=== PATIENT | female | born 1965 | race Caucasian/White ===

== ENCOUNTER 2020-07-11 08:43 | Outpatient (REF) | payer OTHER, SELFPAY ==
[2020-07-11 08:57] LABS: COVID-19 Test Positive (Negative); IDNOW Serial# 55D5AD1C
== END 2020-07-11 08:44 | disposition home or self-care (01) ==
LOC: HO.LAB 08:43
PROVIDERS: Visit Provider Internal Medicine
DX: Z20.828 Contact with and (suspected) exposure to other viral communicable diseases (principal)
CPT/HCPCS: 87635; C9803

== ENCOUNTER 2020-10-10 08:33 | Outpatient (REF) | payer OTHER, SELFPAY ==
--- NOTE | ~2020-10-10 | XR_ITS ---
EXAMINATION: XR HIP, LEFT CLINICAL INFORMATION: Pain COMPARISON: Pelvis x-ray November 2018 Right hip MRI January 2019 TECHNIQUE: Two views of the left hip. FINDINGS: Bone alignment is normal. No fracture or dislocation is seen. There are small acetabular osteophytes. No joint space narrowing is seen. Soft tissues are unremarkable. XR/XR hip LT min 2V IMPRESSION: Mild left hip arthritis.
[2020-10-10 10:25] LABS: Alanine Aminotransferase 36 U/L (0-31); Albumin Level 4.4 g/dL (3.5-5.0); Alkaline Phosphatase 75 U/L (39-117); Anion Gap 13 (12-20); Aspartate Amino Transferase 32 U/L (5-31); Bilirubin Total 0.5 mg/dL (0.0-1.0); Blood Urea Nitrogen 13 mg/dL (9-16); Calcium 9.7 mg/dL (8.4-10.2); Carbon Dioxide 29 mmol/L (22-29); Chloride 108 mmol/L (96-108); Cholesterol 162 mg/dL; Estimated Glomerular Filt Rate > 60; Glucose Fasting 114 mg/dL (60-99); HDL Cholesterol 59 mg/dL; LDL Cholesterol Calculated 90 mg/dl; Potassium 4.8 mmol/L (3.3-5.1); Sodium 145 mmol/L (135-145); Total Protein 7.3 g/dL (6.5-8.0); Triglycerides 68 mg/dL
[2020-10-10 10:31] LABS: Estimated Average Glucose 126 mg/dL
[2020-10-10 10:50] LABS: TSH reflex Free T4 2.22 uIU/mL (0.32-4.0)
== END 2020-10-10 08:34 | disposition home or self-care (01) ==
LOC: HO.LAB 08:33
PROVIDERS: PCP Physician Assistant; Visit Provider Physician Assistant
DX: M25.552 Pain in left hip (principal); E78.5 Hyperlipidemia, unspecified
CPT/HCPCS: 36415; 73502; 80053; 80061; 83036; 84443

== ENCOUNTER → 2020-10-31 14:32 | Outpatient (BNVA) | payer OTHER, SELFPAY | PROVIDERS: Visit Provider Orthopaedic Surgery ==

== ENCOUNTER 2020-11-07 15:46 | Outpatient (REF) | payer OTHER, SELFPAY ==
--- NOTE | ~2020-11-07 | MR_ITS ---
EXAMINATION: MR HIP WITHOUT CONTRAST, LEFT CLINICAL INFORMATION: Left hip pain COMPARISON: MRI right hip dated 02/03/2019 TECHNIQUE: MRI of the left hip was obtained using routine sequences on a high-field magnet. FINDINGS: Moderate marrow edema present within the superior LEFT half of the femoral head, small mass extending into the femoral neck. There is a crescentic subchondral band of low T1 signal intensity along the anterosuperior aspect of the femoral head reflective of a subchondral fracture/avascular necrosis. Trace left hip joint effusion. Previously seen marrow edema within the right femoral head has improved. The changes related to avascular necrosis of the right femoral head have resolved. No displaced labral tears. There is marginal osteophytosis of the bilateral hip joints, with ossification of the superior labrum bilaterally. Mild thinning of the cartilage loss along the posterosuperior femoral acetabular joint. There is edema signal surrounding the gluteus minimus and gluteus medius attachments to the greater trochanter, to lesser extent the anterior aponeurotic fibers of the gluteus carmen. Previously seen presumed enchondroma within the right femoral lesser trochanters unchanged. No additional focal osseous lesions. MR/MR hip LT wo con IMPRESSION: * Mild edema signal within the LEFT femoral head superiorly associated with a crescentic subchondral low T1 signal intensity and within the anterosuperior femoral head compatible with early avascular necrosis. * Small LEFT joint effusion. * Bilateral femoral acetabular marginal osteophytes and ossification of the superior annabella. * Previously seen marrow signal abnormality within the right femoral head has resolved. No evidence of collapse of the subchondral bone plate on the RIGHT. * Stable enchondroma within the RIGHT lesser trochanter. * Mild LEFT gluteus minimus and gluteus medius tendinosis
== END 2020-11-07 15:47 | disposition home or self-care (01) ==
LOC: HO.MRI 15:46
PROVIDERS: Visit Provider Orthopaedic Surgery
DX: M25.552 Pain in left hip (principal)
CPT/HCPCS: 73721

== ENCOUNTER → 2020-11-18 13:31 | Outpatient (BNVA) | payer OTHER, SELFPAY | PROVIDERS: Visit Provider Orthopaedic Surgery ==

== ENCOUNTER → 2020-12-26 13:12 | Outpatient (BNVA) | payer OTHER, SELFPAY | PROVIDERS: PCP Physician Assistant; Visit Provider Orthopaedic Surgery ==

== ENCOUNTER 2021-03-07 13:07 | Outpatient (REF) | payer OTHER, SELFPAY | END 2021-03-07 13:08 | disposition home or self-care (01) | LOC: HO.LAB 13:07 | PROVIDERS: PCP Physician Assistant; Visit Provider Internal Medicine | DX: Z20.822 Contact with and (suspected) exposure to COVID-19 (principal) | CPT/HCPCS: U0003; U0005 ==

== ENCOUNTER 2021-10-15 08:27 | Outpatient (REF) | payer OTHER, SELFPAY ==
[2021-10-15 09:09] LABS: Hematocrit 41.4 % (37.0-47.0); Hemoglobin 12.7 g/dl (12.0-16.0); Mean Corpuscular HGB Conc 30.7 g/dl (31.0-35.0); Mean Corpuscular Hemoglobin 27.5 pg (27.0-33.0); Mean Corpuscular Volume 89.6 fL (80.0-98.0); Mean Platelet Volume 10.8 fL (9.4-12.3); Platelet Count 292 X10*3/uL (160-400); Red Blood Count 4.62 X10*6/uL (4.20-5.50); Red Cell Distribution Width 13.5 % (11.0-16.0); White Blood Count 7.9 X10*3/uL (4.8-10.8)
[2021-10-15 09:23] LABS: Estimated Average Glucose 128 mg/dL; Hemoglobin A1c % 6.1 %
[2021-10-15 09:47] LABS: Alanine Aminotransferase 20 U/L (0-31); Albumin Level 4.3 g/dL (3.5-5.0); Alkaline Phosphatase 65 U/L (39-117); Anion Gap 11 (12-20); Aspartate Amino Transferase 21 U/L (5-31); Bilirubin Total 0.8 mg/dL (0.0-1.0); Blood Urea Nitrogen 12 mg/dL (9-16); Calcium 10.1 mg/dL (8.4-10.2); Carbon Dioxide 30 mmol/L (22-29); Chloride 106 mmol/L (96-108); Cholesterol 177 mg/dL; Estimated Glomerular Filt Rate > 60; Glucose Fasting 112 mg/dL (60-99); HDL Cholesterol 62 mg/dL; LDL Cholesterol Calculated 97 mg/dl; Potassium 4.9 mmol/L (3.3-5.1); Sodium 142 mmol/L (135-145); Total Protein 7.4 g/dL (6.5-8.0); Triglycerides 91 mg/dL
[2021-10-15 10:09] LABS: TSH reflex Free T4 1.85 uIU/mL (0.32-4.0)
== END 2021-10-15 08:28 | disposition home or self-care (01) ==
LOC: HO.LAB 08:27
PROVIDERS: PCP Physician Assistant; Visit Provider Physician Assistant
DX: E78.2 Mixed hyperlipidemia (principal); R73.09 Other abnormal glucose
CPT/HCPCS: 36415; 80053; 80061; 83036; 84443; 85027

== ENCOUNTER → 2021-10-29 10:59 | Outpatient (REF) | payer OTHER, SELFPAY ==
--- NOTE | 2021-10-29 11:13 | HM_ITS ---
Conclusion: 1. Patient was monitored for total period of 5 days and 18 hours 2. Baseline was normal sinus rhythm with average heart rate 82 beats per minute 3. No significant pauses or bradycardia noted 4. Very rare ectopy is noted 5. Patient reported event correlated with sinus rhythm MTDD
== END ==
LOC: HO.SL 10:59
PROVIDERS: PCP Physician Assistant; Visit Provider Physician Assistant
DX: R00.2 Palpitations (principal); R06.81 Apnea, not elsewhere classified
CPT/HCPCS: 93242; 95806

== ENCOUNTER 2021-11-22 10:02 | Outpatient (REF) | payer OTHER, SELFPAY ==
--- NOTE | ~2021-11-22 | MM_ITS ---
EXAMINATION: MM SCREENING DIGITAL BREAST TOMOSYNTHESIS, BILATERAL CLINICAL INFORMATION: Screening. Asymptomatic. The lifetime risk of breast cancer based on the Tyrer-Cuzick Model is 7%. COMPARISON: Mammography: 11/11/2019, 11/05/2018, 02/13/2017 TECHNIQUE: Digital breast tomosynthesis is performed in both the craniocaudal and mediolateral oblique views along with computer-aided detection (CAD). Synthesized 2D images are generated from the tomosynthesis. FINDINGS: There are scattered areas of fibroglandular density (ACR BI-RADS breast composition Category b). There are no significant masses, abnormal calcifications, or other abnormalities. There are diffuse bilateral punctate calcifications similar in number and distribution to prior studies. The axilla and skin contours are unremarkable. MM/MM tomosynthesis screening BI IMPRESSION: No mammographic evidence of malignancy. ASSESSMENT: BI-RADS 2: Benign RECOMMENDATION: Routine annual mammography screening. This patient's information was entered into a reminder system with a target due date for their next mammogram.
== END 2021-11-22 10:03 | disposition home or self-care (01) ==
LOC: HO.MAMMO 10:02
PROVIDERS: PCP Physician Assistant; Visit Provider Physician Assistant
DX: Z12.31 Encounter for screening mammogram for malignant neoplasm of breast (principal)
CPT/HCPCS: 77063; 77067

== ENCOUNTER 2022-04-30 09:00 | Outpatient (REF) | payer OTHER, SELFPAY ==
[2022-04-30 09:54] LABS: Hematocrit 39.4 % (37.0-47.0); Hemoglobin 12.2 g/dl (12.0-16.0); Mean Corpuscular Hemoglobin 27.3 pg (27.0-33.0); Mean Corpuscular Volume 88.1 fL (80.0-98.0); Platelet Count 287 X10*3/uL (160-400); Red Blood Count 4.47 X10*6/uL (4.20-5.50); Red Cell Distribution Width 13.4 % (11.0-16.0); White Blood Count 8.2 X10*3/uL (4.8-10.8)
[2022-04-30 10:40] LABS: Alanine Aminotransferase 33 U/L (0-31); Albumin Level 4.5 g/dL (3.5-5.0); Alkaline Phosphatase 66 U/L (39-117); Anion Gap 15 (12-20); Aspartate Amino Transferase 27 U/L (5-31); Bilirubin Total 0.6 mg/dL (0.0-1.0); Blood Urea Nitrogen 8 mg/dL (9-16); Calcium 9.9 mg/dL (8.4-10.2); Carbon Dioxide 29 mmol/L (22-29); Chloride 107 mmol/L (96-108); Cholesterol 172 mg/dL; Estimated Glomerular Filt Rate > 60; Glucose Fasting 100 mg/dL (60-99); HDL Cholesterol 66 mg/dL; LDL Cholesterol Calculated 87 mg/dl; Potassium 4.9 mmol/L (3.3-5.1); Sodium 146 mmol/L (135-145); Total Protein 7.3 g/dL (6.5-8.0); Triglycerides 97 mg/dL
[2022-04-30 10:48] LABS: TSH reflex Free T4 2.49 uIU/mL (0.32-4.0)
== END 2022-04-30 09:01 | disposition home or self-care (01) ==
LOC: HO.LAB 09:00
PROVIDERS: PCP Physician Assistant; Visit Provider Physician Assistant
DX: E03.9 Hypothyroidism, unspecified (principal); E78.2 Mixed hyperlipidemia; R73.09 Other abnormal glucose
CPT/HCPCS: 36415; 80053; 80061; 84443; 85027

== ENCOUNTER 2022-11-28 09:48 | Outpatient (REF) | payer OTHER, SELFPAY ==
--- NOTE | ~2022-11-28 | MM_ITS ---
EXAMINATION: MM SCREENING DIGITAL BREAST TOMOSYNTHESIS, BILATERAL CLINICAL INFORMATION: Screening. Asymptomatic. The lifetime risk of breast cancer based on the Tyrer-Cuzick Model is 5%. COMPARISON: Mammography: 11/22/2021, 11/11/2019, 11/05/2018 TECHNIQUE: Digital breast tomosynthesis is performed in both the craniocaudal and mediolateral oblique views along with computer-aided detection (CAD). Synthesized 2D images are generated from the tomosynthesis. FINDINGS: There are scattered areas of fibroglandular density (ACR BI-RADS breast composition Category b). Parenchymal pattern is similar to prior exams and there is no significant mass, developing density, or or architectural abnormality. Again, there are diffuse bilateral scattered punctate calcifications in both breasts, similar in number and distribution to prior exams. The axilla and skin contours are unremarkable. No significant changes from prior studies. MM/MM tomosynthesis screening BI IMPRESSION: No mammographic evidence of malignancy. ASSESSMENT: BI-RADS 2: Benign RECOMMENDATION: Routine annual mammography screening. This patient's information was entered into a reminder system with a target due date for their next mammogram.
== END 2022-11-28 09:49 | disposition home or self-care (01) ==
LOC: HO.MAMMO 09:48
PROVIDERS: PCP Physician Assistant; Visit Provider Physician Assistant
DX: Z12.31 Encounter for screening mammogram for malignant neoplasm of breast (principal)
CPT/HCPCS: 77063; 77067

== ENCOUNTER 2023-01-20 08:15 | Outpatient (REF) | payer OTHER, SELFPAY ==
[2023-01-20 08:37] LABS: MANUAL DIFF FLAG NO
[2023-01-20 08:51] LABS: Basophils Absolute Auto 0.1 X10*3/uL (0.0-0.2); Basophils Percent Auto 0.7 % (0-2); Eosinophils Absolute Auto 0.1 X10*3/uL (0.0-0.4); Imm Gran Abs Auto 0.02 X10*3/uL (0.00-0.03); Imm Gran Pct Auto 0.3 % (0.0-0.4); Lymphocytes Absolute Auto 2.5 X10*3/uL (1.2-4.9); Lymphocytes Percent Auto 36.2 % (20-40); Mean Corpuscular HGB Conc 30.8 g/dl (31.0-35.0); Mean Corpuscular Hemoglobin 27.7 pg (27.0-33.0); Mean Corpuscular Volume 90.1 fL (80.0-98.0); Mean Platelet Volume 10.4 fL (9.4-12.3); Monocytes Absolute Auto 0.5 X10*3/uL (0.1-1.2); Monocytes Percent Auto 6.9 % (2-11); Neutrophils Absolute Auto 3.8 x10*3/uL (2.0-8.3); Neutrophils Percent Auto 54.9 % (45-73); Platelet Count 271 X10*3/uL (160-400); Red Blood Count 4.33 X10*6/uL (4.20-5.50); Red Cell Distribution Width 13.6 % (11.0-16.0)
[2023-01-20 09:46] LABS: Alanine Aminotransferase 31 U/L (0-31); Albumin Level 4.3 g/dL (3.5-5.0); Alkaline Phosphatase 67 U/L (39-117); Anion Gap 13 (12-20); Aspartate Amino Transferase 22 U/L (5-31); Bilirubin Total 0.8 mg/dL (0.0-1.0); Blood Urea Nitrogen 10 mg/dL (9-16); Calcium 9.8 mg/dL (8.4-10.2); Carbon Dioxide 28 mmol/L (22-29); Chloride 110 mmol/L (96-108); Cholesterol 160 mg/dL; Estimated Glomerular Filt Rate > 60; Glucose Random 106 mg/dL (60-115); HDL Cholesterol 60 mg/dL; LDL Cholesterol Calculated 89 mg/dl; Potassium 4.9 mmol/L (3.3-5.1); Sodium 146 mmol/L (135-145); Total Protein 7.1 g/dL (6.5-8.0); Triglycerides 59 mg/dL
[2023-01-20 09:56] LABS: Folate 15.6 ng/mL (> or = 4.0); TSH reflex Free T4 1.93 uIU/mL (0.32-4.0); Vitamin B12 268 pg/mL (200-900); Vitamin D 25-OH Total 11.3 ng/mL (>30)
== END 2023-01-20 08:16 | disposition home or self-care (01) ==
LOC: HO.LAB 08:15
PROVIDERS: PCP Physician Assistant; Visit Provider Nurse Practitioner Family
DX: Z00.00 Encounter for general adult medical examination without abnormal findings (principal); E03.9 Hypothyroidism, unspecified; E78.5 Hyperlipidemia, unspecified; R73.09 Other abnormal glucose; E55.9 Vitamin D deficiency, unspecified
CPT/HCPCS: 36415; 80053; 80061; 82306; 82607; 82746; 84443; 85025

== ENCOUNTER 2023-03-09 14:00 | Outpatient (REF) | payer OTHER, SELFPAY ==
--- NOTE | ~2023-03-09 | XR_ITS ---
EXAMINATION: XR ANKLE, RIGHT CLINICAL INFORMATION: Effusion, right ankle COMPARISON: None available. TECHNIQUE: AP, lateral, and mortise views of the right ankle. FINDINGS: No evidence for displaced fracture. The ankle mortise is intact. There is no joint effusion. Large plantar calcaneal spur and Achilles enthesophyte. There is orthopedic hardware in the first metatarsal XR/XR ankle RT 2V IMPRESSION: 1. No evidence for displaced fracture. No joint effusion. 2. Calcaneal spur and Achilles enthesophyte.
== END 2023-03-09 14:01 | disposition home or self-care (01) ==
LOC: HO.XRAY 14:00
PROVIDERS: PCP Physician Assistant; Visit Provider Physician Assistant
DX: M25.471 Effusion, right ankle (principal)
CPT/HCPCS: 73600

== ENCOUNTER 2023-05-04 16:04 | Outpatient (REF) | payer OTHER, SELFPAY ==
[2023-05-04 16:42] LABS: Estimated Average Glucose 120 mg/dL; Hemoglobin A1c % 5.8 % (<6.0)
[2023-05-04 16:56] LABS: Hematocrit 37.8 % (37.0-47.0); Mean Corpuscular HGB Conc 31.7 g/dl (31.0-35.0); Mean Corpuscular Hemoglobin 27.7 pg (27.0-33.0); Mean Corpuscular Volume 87.3 fL (80.0-98.0); Mean Platelet Volume 10.8 fL (9.4-12.3); Platelet Count 283 X10*3/uL (160-400); Red Blood Count 4.33 X10*6/uL (4.20-5.50); Red Cell Distribution Width 13.3 % (11.0-16.0); White Blood Count 9.8 X10*3/uL (4.8-10.8)
[2023-05-04 17:07] LABS: Anion Gap 12 (12-20); Blood Urea Nitrogen 15 mg/dL (9-16); Calcium 9.9 mg/dL (8.4-10.2); Carbon Dioxide 28 mmol/L (22-29); Chloride 107 mmol/L (96-108); Estimated Glomerular Filt Rate > 60; Glucose Random 104 mg/dL (60-115); Potassium 3.8 mmol/L (3.3-5.1); Sodium 143 mmol/L (135-145)
== END 2023-05-04 16:05 | disposition home or self-care (01) ==
LOC: HO.LAB 16:04
PROVIDERS: PCP Physician Assistant; Visit Provider Physician Assistant
DX: R73.09 Other abnormal glucose (principal)
CPT/HCPCS: 36415; 80048; 83036; 85027

== ENCOUNTER → 2023-06-18 15:24 | Outpatient (BNVA) | payer OTHER, SELFPAY | PROVIDERS: PCP Physician Assistant; Visit Provider Physician Assistant | DX: Z13.89 Encounter for screening for other disorder (principal) | CPT/HCPCS: 99204 ==

== ENCOUNTER → 2023-06-24 13:15 | Outpatient (BNVA) | payer OTHER, SELFPAY | PROVIDERS: PCP Physician Assistant; Visit Provider Physician Assistant Medical | DX: Z13.89 Encounter for screening for other disorder (principal) | CPT/HCPCS: 99213 ==

== ENCOUNTER 2023-08-04 15:45 | Outpatient (AMB) | payer OTHER, SELFPAY ==
--- NOTE | 2023-08-04 15:48 | A.OFFPC_ITS ---
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 Required: No Accompanied by: Self / Same As Patient Allergies No Known Allergies Allergy (Verified 08/04/23 16:04) Medication List - Last Reconciled 08/04/23 by Shantanu Leal PA-C cholecalciferol (vitamin D3) 50 mcg PO DAILY cyclobenzaprine 5 mg PO BEDTIME PRN ibuprofen 600 mg PO TID metformin ER 500 mg PO DAILY 30 days naproxen 500 mg PO BID PRN omeprazole 40 mg PO DAILY 90 days simvastatin 40 mg PO BEDTIME Tobacco use date assessed: 01/19/23 Dental Screening Dental Screen Date: 08/04/23 Did you have a dental visit in the last 12 months?: Yes Did you have a dental problem in the last 6 months where you did not have access to dental care?: No Was dental information given to patient?: Patient has dentist HPI HLD, Thyroid HPI Details Patient is a 57-year-old female here today for follow-up visit.? Patient has a past medical history significant for hypothyroidism, hyperlipidemia, impaired glucose metabolism, obesity. .. Obesity:? Has gained weight since last office visit. Continues to have trouble reducing her weight.? Has not physically active in her diet is reported as poor Of note patient did have sleep study in early 2019 to which did show moderate to severe obstructive sleep apnea and recommendations were made to be sleeping in an more upright position. .. GERD: She has been having to use omeprazole on daily basis due to her GERD s ymptoms being on a daily. She does report eating late at night before she goes to bed. .. Hyperlipidemia: Patient continues on simvastatin 40 mg without side effect. Continue to lipid panel to ensure an appropriate LDL below 100. .. Type 2 diabetes: ?Today's A1c is 6.9 from 6.0. Does report dietary indiscretion. She also does report few episodes of feeling shaky and sweaty to which she needed to lay down. She reports she felt better after she ate. Likely hypoglycemia.? PLAN: Will start Trulicity 0.75 mg weekly and discontinue metformin. Trulicity for added benefit of weight loss as well. .. Laboratory Tests 03/28/20 10/10/20 08:08 08:58 Creatinine 0.73 Fasting Glucose 103 H 114 H Hemoglobin A1c % 6.0 Cholesterol 179 162 LDL Cholesterol, C alc 105 TSH 2.22 [facility] Medical History (Updated 08/05/23 @ 07:50 by Shantanu Leal PA-C) Impaired glucose metabolism Exposure to COVID-19 virus Surgical History History of partial hysterectomy History of bunionectomy History of tubal ligation Family History Father Hypertension Alcoholism Mother Acute CVA (cerebrovascular accident) Stroke Son In good health Daughter In good health Social History Housing: House Alcohol intake: never Patient Tobacco Use Status: Never used Tobacco e-Cigarette/Vaping Use: Never Used service: No Current occupational status: employed 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 Marc Taylor, Kathie Patel, Rogelio Mercado and colleagues, with an educational sonia from [employer]. Review of Systems Const Denies headache(s) Eyes Denies loss of vision ENT Denies vertigo, Denies dizziness, Denies headache(s) and Denies sore throat Card Denies chest pain, Denies leg edema and Denies lightheadedness Resp Denies cough, Denies hemoptysis and Denies wheezing GI Denies abdominal pain, Denies melena, Denies constipation, Denies diarrhea and Denies vomiting Denies urinary frequency, Denies dysuria and Denies urinary urgency Musc Denies arthralgias, Denies joint swelling, Denies numbness and Denies tingling Neuro Denies Abnormal speech present, Denies behavioral changes, Denies vertigo, Denies dizziness, Denies headache(s), Denies loss of vision, Denies memory loss, Denies numbness and Denies tingling Psych Denies anxiety, Denies behavioral changes, Denies depression, Denies memory loss and Denies panic attacks James/Lymph Denies easy bleeding and Denies easy bruising Aller/Immun Denies wheezing Physical exam (Primary Care) Vital Signs: Last Vital Signs Pulse 90 08/04/23 15:49 BP 150/96 H 08/04/23 15:49 Pulse Ox 95 08/04/23 15:49 Oxygen Delivery Method Room Air 08/04/23 15:49 BMI result Body Mass Index 34.8 BMI Assessment/Plan discussion: High Tobacco/Smoking Status: Tobacco use Status Tobacco use date assessed 01/19/23 08/04/23 15:50 Patient Tobacco Use Status Never used Tobacco 08/04/23 15:50 e-Cigarette/Vaping Use Never Used 08/04/23 15:50 Thrive Assessment: Date of Thrive Assessment Date Thrive assessed 01/19/23 08/04/23 15:50 Const Other: Obese General: healthy appearing, no acute distress, alert and awake Nutritional Appearance: well nourished Orientation/consciousness: oriented to person, oriented to place and oriented to time HENMT Ears: TM's normal bilaterally General nose exam: Normal nasal mucous membranes and turbinates present Eyes Conjunctivae: conjunctivae normal Sclerae: sclerae normal Pupils: Equal, round and reactive pupils present Neck Neck: Yes no lymphadenopathy and Yes no JVD Thyroid: Thyroid normal Carotids: no bruits Resp Effort & Inspection: normal respiratory effort and not tachypneic Auscultation: no crackles, no rales, no rhonchi and no wheezes Cardio Rate: regular rate Rhythm: regular rhythm Heart sounds: no murmurs and normal S1 and S2 GI Palpation (GI): Soft to palpation, nontender, no hepatomegaly and no splenomegaly Auscultation: normal bowel sounds Skin General skin exam: no rashes or lesions noted and dry skin Neuro General: oriented to person, oriented to place and oriented to time Cranial nerves: Yes Equal, round and reactive pupils present Speech: No Abnormal speech present Gait exam (Neuro): Normal gait present Motor exam (neuro): no tremor noted Extrem Right upper extremity: full ROM Left upper extremity: full ROM Right lower extremity: full ROM; no edema Left lower extremity: full ROM; no edema Psych Mental Status: mental status grossly normal Speech and movement: Normal speech and movement present Affect: normal affect Attitude: cooperative Thought process: Normal thought process present Results AMB Hemoglobin A1c AMB Hemoglobin A1c 6.9 % Last Edit by CLARIBEL Lopez on 08/04/23 16:06 Results Reviewed Results Reviewed: Laboratory Last Values Hgb A1c (Clinic) 6.9 % (4.0-6.0) H 08/04/23 15:56 Assessment and Plan Assessment & Plan (1) DMII (diabetes mellitus, type 2): Code(s): E11.9 - Type 2 diabetes mellitus without complications Qualifiers: Diabetes mellitus complication status: with hyperglycemia 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 She is willing to start once weekly injection of Trulicity for added benefit of weight loss. If able to get Trulicity covered by [employer] will discontinue metformin. Goal A1c is to be below 6.5 (2) HLD (hyperlipidemia): Code(s): E78.5 - Hyperlipidemia, unspecified Qualifiers: Hyperlipidemia type: mixed hyperlipidemia Qualified Code(s): E78.2 - Mixed hyperlipidemia Plan: patient continues on statin therapy with good effect. Will get more recent lipid panel. Goal LDL to be below 100 due to her new onset diabetes. (3) GERD (gastroesophageal reflux disease): Code(s): K21.9 - Gastro-esophageal reflux disease without esophagitis Qualifiers: Esophagitis presence: without esophagitis Qualified Code(s): K21.9 - Gastro-esophageal reflux disease without esophagitis Plan: She reports GERD symptoms have been more frequent. Have to take omeprazole on a daily basis. Will try dietary modifications and not eating too late at night before she lays down for bed. Orders: Orders Lipid Panel 08/04/23 E78.2 - Mixed hyperlipidemia AMB Hemoglobin A1c 08/04/23 Z13.1 - Encounter for screening for diabetes mellitus Comprehensive [place]. Panel Fast 08/04/23 E78.2 - Mixed hyperlipidemia TSH reflex Free T4 08/04/23 E03.9 - Hypothyroidism, unspecified Vitamin D 25-OH Total 08/04/23 R79.89 - Other specified abnormal findings of blood chemistry Referrals Ophthalmology Referral E11.65 - Type 2 diabetes mellitus with hyperglycemia Medications: New lancets (FreeStyle Lancets) Test once a day 100 ea 3RF E11.65 - Type 2 diabetes mellitus with hyperglycemia, E11.9 - Type 2 diabetes mellitus without complications blood sugar diagnostic (FreeStyle Lite Strips) Test once a day 50 ea 3RF E11.65 - Type 2 diabetes mellitus with hyperglycemia, E11.9 - Type 2 diabetes mellitus without complications dulaglutide (Trulicity) 0.75 mg (0.5 mL) subcut QWEEK 2 mL 1RF E11.65 - Type 2 diabetes mellitus with hyperglycemia blood-glucose meter (FreeStyle [place] Lite kit) As directed 1 ea 0RF E11.65 - Type 2 diabetes mellitus with hyperglycemia Refilled cholecalciferol (vitamin D3) 50 mcg PO DAILY 90 tabs 0RF R79.89 - Other specified abnormal findings of blood chemistry simvastatin 40 mg PO BEDTIME 90 tabs 2RF E78.2 - Mixed hyperlipidemia omeprazole 40 mg PO DAILY 90 days 90 caps 1RF K21.9 - Gastro-esophageal reflux disease without esophagitis Discontinued ibuprofen Discontinued Reason: Doctor's Order 600 mg PO TID 90 tabs 0RF M25.552 - Pain in left hip On Hold metformin ER Hold Comment: Doctor's Order 500 mg PO DAILY 30 days 30 tabs 6RF R73.09 - Other abnormal glucose Coding Level of Care Code Est Pt Level 4 (69732) Diagnoses Type 2 diabetes mellitus with hyperglycemia, without long-term current use of insulin E11.65 Diabetes mellitus complication status: with hyperglycemia Diabetes mellitus senior care insulin use: without senior care use Mixed hyperlipidemia E78.2 Hyperlipidemia type: mixed hyperlipidemia Gastroesophageal reflux disease without esophagitis K21.9 Esophagitis presence: without esophagitis
[2023-08-04 15:49] VITALS: BP 150/96; PULSE 90; O2SAT 95; BMI 34.8
== END 2023-08-04 16:25 | disposition home or self-care (01) ==
PROVIDERS: PCP Physician Assistant; Visit Provider Physician Assistant
DX: E11.65 Type 2 diabetes mellitus with hyperglycemia (principal)
CPT/HCPCS: 83036; 99214

== ENCOUNTER 2023-08-05 08:35 | Outpatient (REF) | payer OTHER, SELFPAY ==
[2023-08-05 10:53] LABS: Alanine Aminotransferase 43 U/L (0-31); Albumin Level 4.4 g/dL (3.5-5.0); Alkaline Phosphatase 67 U/L (39-117); Anion Gap 15 (12-20); Aspartate Amino Transferase 31 U/L (5-31); Bilirubin Total 0.6 mg/dL (0.0-1.0); Blood Urea Nitrogen 16 mg/dL (9-16); Carbon Dioxide 30 mmol/L (22-29); Chloride 108 mmol/L (96-108); Cholesterol 165 mg/dL (<200); Estimated Glomerular Filt Rate > 60; Glucose Fasting 105 mg/dL (60-99); HDL Cholesterol 58 mg/dL (>40); LDL Cholesterol Calculated 87 mg/dL (<100); Potassium 4.5 mmol/L (3.3-5.1); Sodium 148 mmol/L (135-145); Total Protein 7.6 g/dL (6.5-8.0); Triglycerides 102 mg/dL (<150)
[2023-08-05 10:58] LABS: TSH reflex Free T4 3.76 uIU/mL (0.32-4.0); Vitamin D 25-OH Total 28.2 ng/mL (>30)
== END 2023-08-05 08:36 | disposition home or self-care (01) ==
LOC: HO.LAB 08:35
PROVIDERS: PCP Physician Assistant; Visit Provider Physician Assistant
DX: E78.2 Mixed hyperlipidemia (principal); E03.9 Hypothyroidism, unspecified; E55.9 Vitamin D deficiency, unspecified
CPT/HCPCS: 36415; 80053; 80061; 82306; 84443

== ENCOUNTER 2023-11-10 10:52 | Outpatient (AMB) | payer OTHER, SELFPAY ==
[2023-11-10 11:28] VITALS: BP 150/92; PULSE 85; O2SAT 98; BMI 35.2
--- NOTE | 2023-11-10 11:28 | MHC.PC.OV ---
Vital Signs 11/10/23 11:28 11/10/23 12:01 Height 5 ft 5 in Weight 211 lb 4 oz BMI 35.2 BP 150/92 H 144/86 H Blood Pressure Location Lt brachial Position Sitting Pulse 85 Pulse Source Pulse Oximeter Pulse Oximetry (%) 98 Oxygen Delivery Method Room Air Intake Visit Reasons: 3 month f/u Linux Administrator Required: No Accompanied by: Self / Same As Patient Allergies No Known Allergies Allergy (Verified 11/10/23 11:46) Tobacco use date assessed: 11/10/23 Dental Screening Dental Screen Date: 11/10/23 Did you have a dental visit in the last 12 months?: Yes Did you have a dental problem in the last 6 months where you did not have access to dental care?: No Was dental information given to patient?: Patient has dentist HPI 3 month f/u HPI Details Patient is a 58-year-old female here today for follow-up visit.? Patient has a past medical history significant for hypothyroidism, osteoarthritis of the hip hyperlipidemia, impaired glucose metabolism, obesity. .. Obesity:? Has gained weight since last office visit. Continues to have trouble reducing her weight.? Has not physically active in her diet is reported as poor Of note patient did have sleep study in early 2019 to which did show moderate to severe obstructive sleep apnea and recommendations were made to be sleeping in an more upright position. .. GERD: She has been having to use omeprazole on daily basis due to her GERD symptoms being on a daily. She does report eating late at night before she goes to bed. .. Hyperlipidemia: Patient continues on simvastatin 40 mg without side effect. Continue to lipid panel to ensure an appropriate LDL below 100. .. Type 2 diabetes: ?Today's A1c is 6.2 from 6.9. Does report dietary indiscretion reports his hard to eat vegetables . We have discontinued metformin and started Trulicity though has not noted any weight loss with Trulicity. PLAN: Will transition to Ozempic 0.5 mg weekly and up titrate per response. She is now very interested in starting to be more physically active and adapt to better eating habits. She is now interested in speaking with a hawk missile air defense artillery. Laboratory Tests 08/04/23 11/10/23 15:56 11:18 Hgb A1c (Clinic) 6.9 H 6.2 H [facility] Medical History (Updated 03/13/24 @ 12:01 by Shantanu Leal PA-C) Impaired glucose metabolism Exposure to COVID-19 virus Surgical History History of partial hysterectomy History of bunionectomy History of tubal ligation Family History Father Hypertension Alcoholism Mother Acute CVA (cerebrovascular accident) Stroke Son In good health Daughter In good health Social History Housing: House Alcohol intake: never Patient Tobacco Use Status: Never used Tobacco e-Cigarette/Vaping Use: Never Used service: No Current occupational status: employed 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 1. Little interest or pleasure in doing things: not at all 2. Feeling down, depressed, or hopeless: not at all 3. Trouble falling or staying asleep, or sleeping too much: not at all 4. Feeling tired or having little energy: not at all 5. Poor appetite or overeating: not at all 6. Feeling bad about yourself - or that you are a failure or have let yourself or your family down: not at all 7. Trouble concentrating on things, such as reading the newspaper or watching television: not at all 8. Moving or speaking so slowly that other people could have noticed. Or the opposite - being so fidgety or restless that you have been moving around a lot more than usual: not at all 9. Thoughts that you would be better off or of hurting yourself in some way: not at all Total score: 0 Depression Screening Interpretation: Negative Depression Screening Done: Yes 25788 - PHQ-9 Billing: Yes Source: Developed by Drs. Marc Taylor, Kathie Patel, Rogelio Mercado and colleagues, with an educational sonia from [employer]. Thrive Questionnaire Date Thrive assessed: 11/10/23 I am a: Patient What is your living situation today?: I have a steady place to live Within the past 12 months, did the food you bought not last and you didn't have the money to get more?: Never true Within the past 12 months, did you worry whether your food would run out before you got money to buy more?: Never true Do you have trouble paying for medicines?: No Do you have trouble getting transportation to medical appointments?: No Do you have trouble paying your heating and electricity bill?: No Do you have trouble taking care of your child, family member or friend?: No Do you have trouble with day-to-day activities such as bathing, preparing meals, shopping, managing finances, etc.?: No Are you currently unemployed and looking for a job?: No Are you interested in more education?: No Please select the resources that you would like help with: None Currently or been in a relationship where the following occur: no concerns reported THRIVE Score: 0 AUDIT C Alcohol Use Questionnaire (AUDIT-C) 1. How often do you have a drink containing alcohol?: Never 3. How often do you have six or more drinks on one occasion?: Never Total Score: 0 JED-7 AMB Questionnaire JED-7 Date JED - 7 assessed: 11/10/23 Feeling nervous, anxious, or on edge: 0 = Not at all Not being able to stop or control worryin = Not at all Worrying too much about different things: 0 = Not at all Trouble relaxin = Not at all Being so restless that it is hard to sit still: 0 = Not at all Becoming easily annoyed or irritable: 0 = Not at all Feeling afraid as if something awful might happen: 0 = Not at all Total JED-7 score (0-4 normal; 5-9 mild; 10-14 moderate; 15-21 severe): 0 Source: Developed by Drs. Marc Taylor, Kathie Patel, Rogelio Mercado and colleagues, with an educational sonia from [employer]. JED-7 Assessment Billing JED-7 Assessment Tool: JED-7 Assessment 34004 Review of Systems Const Denies headache(s) Eyes Denies loss of vision ENT Denies vertigo, Denies dizziness, Denies headache(s) and Denies sore throat Card Denies chest pain, Denies leg edema and Denies lightheadedness Resp Denies cough, Denies hemoptysis and Denies wheezing GI Denies abdominal pain, Denies melena, Denies constipation, Denies diarrhea and Denies vomiting Denies urinary frequency, Denies dysuria and Denies urinary urgency Musc Denies arthralgias, Denies joint swelling, Denies numbness and Denies tingling Neuro Denies Abnormal speech present, Denies behavioral changes, Denies vertigo, Denies dizziness, Denies headache(s), Denies loss of vision, Denies memory loss, Denies numbness and Denies tingling Psych Denies anxiety, Denies behavioral changes, Denies depression, Denies memory loss and Denies panic attacks James/Lymph Denies easy bleeding and Denies easy bruising Aller/Immun Denies wheezing Physical exam (Primary Care) Vital Signs: Last Vital Signs Pulse 85 11/10/23 11:28 BP 144/86 H 11/10/23 12:01 Pulse Ox 98 11/10/23 11:28 Oxygen Delivery Method Room Air 11/10/23 11:28 BMI result Body Mass Index 35.2 BMI Assessment/Plan discussion: High Tobacco/Smoking Status: Tobacco use Status Tobacco use date assessed 11/10/23 11/10/23 11:46 Patient Tobacco Use Status Never used Tobacco 11/10/23 11:31 e-Cigarette/Vaping Use Never Used 11/10/23 11:31 PHQ-9: PHQ-9 Score PHQ-9: Total score 0 11/10/23 11:47 Depression Screening Interpretation: Negative Thrive Assessment: Date of Thrive Assessment Date Thrive assessed 11/10/23 11/10/23 11:31 Currently or been in a relationship where the following occur: no concerns reported Const Other: Obese General: healthy appearing, no acute distress, alert and awake Nutritional Appearance: well nourished Orientation/consciousness: oriented to person, oriented to place and oriented to time HENMT Ears: TM's normal bilaterally General nose exam: Normal nasal mucous membranes and turbinates present Eyes Conjunctivae: conjunctivae normal Sclerae: sclerae normal Pupils: Equal, round and reactive pupils present Neck Neck: Yes no lymphadenopathy and Yes no JVD Thyroid: Thyroid normal Carotids: no bruits Resp Effort & Inspection: normal respiratory effort and not tachypneic Auscultation: no crackles, no rales, no rhonchi and no wheezes Cardio Rate: regular rate Rhythm: regular rhythm Heart sounds: no murmurs and normal S1 and S2 GI Palpation (GI): Soft to palpation, nontender, no hepatomegaly and no splenomegaly Auscultation: normal bowel sounds Skin General skin exam: no rashes or lesions noted and dry skin Neuro General: oriented to person, oriented to place and oriented to time Cranial nerves: Yes Equal, round and reactive pupils present Speech: No Abnormal speech present Gait exam (Neuro): Normal gait present Motor exam (neuro): no tremor noted Extrem Right upper extremity: full ROM Left upper extremity: full ROM Right lower extremity: full ROM; no edema Left lower extremity: full ROM; no edema Psych Mental Status: mental status grossly normal Speech and movement: Normal speech and movement present Affect: normal affect Attitude: cooperative Thought process: Normal thought process present Results AMB Hemoglobin A1c AMB Hemoglobin A1c 6.2 % Last Edit by CLARIBEL Lopez on 11/10/23 11:46 Results Reviewed Results Reviewed: Laboratory Last Values Hgb A1c (Clinic) 6.2 % (4.0-6.0) H 11/10/23 11:18 Assessment and Plan Assessment & Plan (1) DMII (diabetes mellitus, type 2): Code(s): E11.9 - Type 2 diabetes mellitus without complications Qualifiers: Diabetes mellitus complication status: with hyperglycemia Diabetes mellitus prison insulin use: without prison use Qualified Code(s): E11.65 - Type 2 diabetes mellitus with hyperglycemia Plan: A1c has improved. She is started Trulicity though has not noted any weight loss in fact has gained weight.. Will try to transition to Ozempic 0.5 mg weekly and up titrate per response. She was start working on a diabetic diet and being more physically active to lose weight as well. Will try to set her up with a hawk missile air defense artillery to discuss diabetic diet Goal A1c is to be below 6.5 (2) HLD (hyperlipidemia): Code(s): E78.5 - Hyperlipidemia, unspecified Qualifiers: Hyperlipidemia type: mixed hyperlipidemia Qualified Code(s): E78.2 - Mixed hyperlipidemia Plan: patient continues on statin therapy with good effect. Will get more recent lipid panel. Goal LDL to be below 100 due to her new onset diabetes. (3) GERD (gastroesophageal reflux disease): Code(s): K21.9 - Gastro-esophageal reflux disease without esophagitis Qualifiers: Esophagitis presence: without esophagitis Qualified Code(s): K21.9 - Gastro-esophageal reflux disease without esophagitis Plan: She reports GERD symptoms have been more frequent. Have to take omeprazole on a daily basis. Will try dietary modifications and not eating too late at night before she lays down for bed. (4) Obese: Code(s): E66.9 - Obesity, unspecified Qualifiers: Body mass index: BMI 35.0-35.9 Obesity classification: adult class 2 (BMI 35 - 39.9) Obesity type: due to excess calories Serious obesity comorbidity presence: with serious comorbidity Qualified Code(s): E66.01 - Morbid (severe) obesity due to excess calories; Z68.35 - Body mass index [BMI] 35.0-35.9, adult Plan: Patient does understand her BMI is over 30 will work on being more physically active and adapting to better eating habits to reduce her weight (5) HTN (hypertension): Code(s): I10 - Essential (primary) hypertension Qualifiers: Hypertension type: primary hypertension Qualified Code(s): I10 - Essential (primary) hypertension Plan: Noted elevated blood pressure readings on several occasions here in the MD office. Will start low-dose hydrochlorothiazide for blood pressure control. Advised to monitor blood pressure at home with goal blood pressure to be below 140/90 Orders: Orders AMB Hemoglobin A1c Today E11.9 - Type 2 diabetes mellitus without complications Lipid Panel Today E78.2 - Mixed hyperlipidemia Microalbumin, Random (w Creat) Today E11.65 - Type 2 diabetes mellitus with hyperglycemia MM screening mammo BI Today Z12.31 - Encounter for screening mammogram for malignant neoplasm of breast Comprehensive [place]. Panel Fast Today E11.65 - Type 2 diabetes mellitus with hyperglycemia TSH reflex Free T4 Today E03.9 - Hypothyroidism, unspecified Referrals Census Taker Nutrition Referral E66.9 - Obesity, unspecified Medications: New semaglutide (Ozempic) 0.5 mg (0.736 mL) subcut QWEEK 3 mL 3RF E11.65 - Type 2 diabetes mellitus with hyperglycemia hydrochlorothiazide 12.5 mg PO DAILY 90 days 90 tabs 1RF I10 - Essential (primary) hypertension Discontinued dulaglutide (Trulicity) Discontinued Reason: Doctor's Order 0.75 mg (0.5 mL) subcut QWEEK 2 mL 1RF E11.65 - Type 2 diabetes mellitus with hyperglycemia Coding Level of Care Code Est Pt Level 4 (11721) Diagnoses Type 2 diabetes mellitus with hyperglycemia, without long-term current use of insulin E11.65 Diabetes mellitus complication status: with hyperglycemia Diabetes mellitus intermission coordinator insulin use: without intermission coordinator use Mixed hyperlipidemia E78.2 Hyperlipidemia type: mixed hyperlipidemia Gastroesophageal reflux disease without esophagitis K21.9 Esophagitis presence: without esophagitis Class 2 severe obesity due to excess calories with serious comorbidity and body mass index (BMI) of 35.0 to 35.9 in adult E66.01; Z68.35 Body mass index: BMI 35.0-35.9 Obesity classification: adult class 2 (BMI 35 - 39.9) Obesity type: due to excess calories Serious obesity comorbidity presence: with serious comorbidity Primary hypertension I10 Hypertension type: primary hypertension Additional Codes JED-7 Assessment Billing - JED-7 Assessment Tool: JED-7 Assessment 33308 ([id number])
[2023-11-10 12:01] VITALS: BP 144/86
== END 2023-11-10 12:10 | disposition home or self-care (01) ==
PROVIDERS: PCP Physician Assistant; Visit Provider Physician Assistant
DX: E11.65 Type 2 diabetes mellitus with hyperglycemia (principal); E78.2 Mixed hyperlipidemia; K21.9 Gastro-esophageal reflux disease without esophagitis; E66.01 Morbid (severe) obesity due to excess calories; Z68.35 Body mass index [BMI] 35.0-35.9, adult; I10 Essential (primary) hypertension; E11.9 Type 2 diabetes mellitus without complications
CPT/HCPCS: 83036; 99214

== ENCOUNTER 2023-11-11 07:19 | Outpatient (REF) | payer OTHER, SELFPAY ==
[2023-11-11 08:21] LABS: Alanine Aminotransferase 29 U/L (0-31); Albumin Level 4.1 g/dL (3.5-5.0); Alkaline Phosphatase 80 U/L (39-117); Anion Gap 10 (12-20); Aspartate Amino Transferase 26 U/L (5-31); Bilirubin Total 0.4 mg/dL (0.0-1.0); Blood Urea Nitrogen 15 mg/dL (9-16); Calcium 9.7 mg/dL (8.4-10.2); Carbon Dioxide 30 mmol/L (22-29); Chloride 110 mmol/L (96-108); Cholesterol 161 mg/dL (<200); Estimated Glomerular Filt Rate > 60; Glucose Fasting 134 mg/dL (60-99); HDL Cholesterol 52 mg/dL (>40); LDL Cholesterol Calculated 88 mg/dL (<100); Potassium 4.2 mmol/L (3.3-5.1); Sodium 146 mmol/L (135-145); Total Protein 7.2 g/dL (6.5-8.0); Triglycerides 108 mg/dL (<150)
[2023-11-11 08:29] LABS: Creatinine Urine 194.36 mg/dL; Microalbum/Creatinine Ratio Ur 5.6 ug/mg cr (<30)
[2023-11-11 08:35] LABS: TSH reflex Free T4 2.97 uIU/mL (0.32-4.0)
== END 2023-11-11 07:20 | disposition home or self-care (01) ==
LOC: HO.LAB 07:19
PROVIDERS: PCP Physician Assistant; Visit Provider Physician Assistant
DX: E11.65 Type 2 diabetes mellitus with hyperglycemia (principal); E03.9 Hypothyroidism, unspecified; E78.2 Mixed hyperlipidemia
CPT/HCPCS: 36415; 80053; 80061; 82043; 82570; 84443

== ENCOUNTER 2023-11-24 12:55 | Outpatient (AMB) | payer OTHER, SELFPAY ==
[2023-11-24 12:59] VITALS: BMI 35.1
--- NOTE | 2023-11-24 12:59 | A.OFFVIS_ITS ---
Intake VS Expanded 11/24/23 12:59 Height 5 ft 5 in Weight 210 lb 12.191 oz BMI 35.1 Intake Visit Reasons: Obesity/LVM Allergies No Known Allergies Allergy (Verified 11/10/23 11:46) HPI Nutrition Presentation Details Pt presents for MNT for obesity. Pt also has T2DM. Pt was referred by primary care provider, Christian Leal Pt reports eating out more frequently since moving to a new living place in March 2023 Typical meal B: eggs/cheese on sand and juice L: chicken/potato/veg meal at work snacks : juices/sodas 7pm dinner: eating out (rice/ellison/ques[place] illa beverages: juices/soda,no water food frequency fish: 0-1/wk fruits 2-3/d or juices beans- not including vegetables: limited to 0-2x/wk dairy: cheese mostly sedentary - no ETOH/Smoking PJC-Zctwyhq-Vy.Jeor Equation Height 5 ft 5 in Weight 211 lb Resting Metabolic Rate 1551.48 Calculated Activity Level Sedentary Calories Needed to Maintain Weight 1861.78 Diagnosis Nutrition problem #1 excessive energy intake As related to (etiology) #1 diagnosis As evidenced by (sign/symptom) #1 high BMI (35 on 11/2023) and knowledge deficit of diet Monitoring/Goals Nutrition problem monitoring level of knowledge/skill, total CHO intake, weight and oral fluids Nutrition goal/outcome wt loss 5lbs in 2 months Outcome progress verbalized understanding Learning/Education Readiness to learn good Most Recent Diabetes Results: Microalb/Creat Ratio 5.6 ug/mg cr (<30) 11/11/23 Cholesterol 161 mg/dL (<200) 11/11/23 HDL Cholesterol 52 mg/dL (>40) 11/11/23 Triglycerides 108 mg/dL (<150) 11/11/23 Creatinine 0.79 mg/dL (0.5-1.4) 11/11/23 Blood Urea Nitrogen 15 mg/dL (9-16) 11/11/23 Sodium 146 mmol/L (135-145) H 11/11/23 Potassium 4.2 mmol/L (3.3-5.1) 11/11/23 Chloride 110 mmol/L (96-108) H 11/11/23 Carbon Dioxide 30 mmol/L (22-29) H 11/11/23 Calcium 9.7 mg/dL (8.4-10.2) 11/11/23 AST 26 U/L (5-31) 11/11/23 ALT 29 U/L (0-31) 11/11/23 Total Protein 7.2 g/dL (6.5-8.0) 11/11/23 Albumin 4.1 g/dL (3.5-5.0) 11/11/23 [facility] Medical History (Updated 11/10/23 @ 12:01 by Shantanu Leal PA-C) Impaired glucose metabolism Exposure to COVID-19 virus Surgical History History of partial hysterectomy History of bunionectomy History of tubal ligation Family History Father Hypertension Alcoholism Mother Acute CVA (cerebrovascular accident) Stroke Son In good health Daughter In good health Social History Housing: House Alcohol intake: never Patient Tobacco Use Status: Never used Tobacco e-Cigarette/Vaping Use: Never Used service: No Current occupational status: employed 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 Cognitive needs: No Hearing needs: No Vision needs: No Assessment & Plan Assessment & Plan (1) DMII (diabetes mellitus, type 2): Code(s): E11.9 - Type 2 diabetes mellitus without complications Qualifiers: Diabetes mellitus complication status: with hyperglycemia Diabetes mellitus fpc insulin use: without fpc use Qualified Code(s): E11.65 - Type 2 diabetes mellitus with hyperglycemia Plan: Wt:96 Kg ( 10/2023 ) Est kcal needs as per MSJ: 5499-5032 (40% carb, 30% protein/fat) Est fluid needs as per 25-30 ml/d: 2900 Est prot per day as per 1 g/kg bw: 96 Recommend fiber intake : 8-10 g per day and gradually increase to 25-28 g per day for women and 35-38 g for men or as tolerated Recommend sodium intake per day : less than 2000 mg Educated patient on: ( R = reviewed V = verbalizes understanding N/R = needs review N/A = not applicable * Food sources of carbohydrate, adequate serving sizes and its role in various health conditions: R * Differences between complex carbohydrates a simple carbohydrates, role of fiber in diet: R * Lean protein sources of foods: R V NR * Differences between types of fats and role in diet (mono on saturated fat fatty acids, saturated fatty acids, trans fats): R basic * Food sources of sodium in salt and healthy modifications for heart health in kidney health: R V R/V * Vitamins and minerals: R V N/R * Healthy plate method concept: R * Physical activity: Benefits a precaution: R V N/R * Hypoglycemia protocol (rule of 15): R V N/R * Dietary prevention of Hyperglycemia: R Patient Instructions: HAve a fruit in place of juices see meal plan for ideas on reducing portions/total carbs to 60 g or less at meal time for now monitor your blood sugar to assess low blood sugar , treat low blood sugar by following rule of 15, report low blood sugar to your primary care provider for further evaluation Coding Level of Care Code Nutr Indiv Intake (11870) Diagnoses Type 2 diabetes mellitus with hyperglycemia, without long-term current use of insulin E11.65 Diabetes mellitus complication status: with hyperglycemia Diabetes mellitus termite treater helper insulin use: without termite treater helper use Time Spent (min) 30
[2023-12-06 20:27] VITALS: BMI 35.1
== END 2023-11-24 13:36 | disposition home or self-care (01) ==
PROVIDERS: PCP Physician Assistant; Visit Provider Dietitian, Registered
DX: E11.65 Type 2 diabetes mellitus with hyperglycemia (principal)

== ENCOUNTER → 2023-11-24 12:55 | Outpatient (BNVA) | payer OTHER, SELFPAY | PROVIDERS: PCP Physician Assistant; Visit Provider Dietitian, Registered | DX: E66.9 Obesity, unspecified (principal); Z68.35 Body mass index [BMI] 35.0-35.9, adult; E11.65 Type 2 diabetes mellitus with hyperglycemia; Z71.3 Dietary counseling and surveillance | CPT/HCPCS: 97802 ==

== ENCOUNTER 2023-12-25 09:51 | Outpatient (REF) | payer OTHER, SELFPAY ==
--- NOTE | ~2023-12-25 | MM_ITS ---
EXAMINATION: MM SCREENING DIGITAL BREAST TOMOSYNTHESIS, BILATERAL CLINICAL INFORMATION: Screening. Asymptomatic. COMPARISON: Mammography: This study is compared with prior exams dating back to 2019. TECHNIQUE: Digital breast tomosynthesis is performed in both the craniocaudal and mediolateral oblique views along with computer-aided detection (CAD). Synthesized 2D images are generated from the tomosynthesis. FINDINGS: There are scattered areas of fibroglandular density (ACR BI-RADS breast composition Category b). There are no significant masses, abnormal calcifications, or other abnormalities. There are bilateral benign calcifications in each breast. MM/MM tomosynthesis screening BI IMPRESSION: No mammographic evidence of malignancy. ASSESSMENT: BI-RADS BI-RADS 1 - Negative RECOMMENDATION: Routine annual mammography screening. 1 year F/U This examination should not preclude the clinical evaluation of a suspicious palpable abnormality. This patient's information was entered into a reminder system with a target due date for their next mammogram.
== END 2023-12-25 09:52 | disposition home or self-care (01) ==
LOC: HO.MAMMO 09:51
PROVIDERS: PCP Physician Assistant; Visit Provider Physician Assistant
DX: Z12.31 Encounter for screening mammogram for malignant neoplasm of breast (principal)
CPT/HCPCS: 77063; 77067

== ENCOUNTER → 2023-12-25 10:00 | Outpatient (BNV) | payer OTHER, SELFPAY | PROVIDERS: PCP Physician Assistant; Visit Provider Radiology Diagnostic Radiology | DX: Z12.31 Encounter for screening mammogram for malignant neoplasm of breast (principal) | CPT/HCPCS: 77063; 77067 ==

== ENCOUNTER 2023-12-29 12:58 | Outpatient (AMB) | payer OTHER, SELFPAY ==
[2023-12-29 13:10] VITALS: BMI 33.1
--- NOTE | 2023-12-29 13:10 | A.OFFVIS_ITS ---
Intake VS Expanded 12/29/23 13:10 Height 5 ft 5 in Weight 198 lb 13.711 oz BMI 33.1 Intake Visit Reasons: obesity /T2DM/CONFIRMED Allergies No Known Allergies Allergy (Verified 11/10/23 11:46) HPI Nutrition Presentation Details Pt presents for MNT for f/u f or type 2DM Pt reports working on diet modifications, reducing portions, choosing lower calorie lunches/making home made lunches Has started to walk 1/2 hour , 5 times/wk Pt reports feeling well, not monitoring BG Most Recent Diabetes Results: Microalb/Creat Ratio 5.6 ug/mg cr (<30) 11/11/23 Cholesterol 161 mg/dL (<200) 11/11/23 HDL Cholesterol 52 mg/dL (>40) 11/11/23 Triglycerides 108 mg/dL (<150) 11/11/23 Creatinine 0.79 mg/dL (0.5-1.4) 11/11/23 Blood Urea Nitrogen 15 mg/dL (9-16) 11/11/23 Sodium 146 mmol/L (135-145) H 11/11/23 Potassium 4.2 mmol/L (3.3-5.1) 11/11/23 Chloride 110 mmol/L (96-108) H 11/11/23 Carbon Dioxide 30 mmol/L (22-29) H 11/11/23 Calcium 9.7 mg/dL (8.4-10.2) 11/11/23 AST 26 U/L (5-31) 11/11/23 ALT 29 U/L (0-31) 11/11/23 Total Protein 7.2 g/dL (6.5-8.0) 11/11/23 Albumin 4.1 g/dL (3.5-5.0) 11/11/23 [facility] Medical History (Updated 11/10/23 @ 12:01 by Shantanu Leal PA-C) Impaired glucose metabolism Exposure to COVID-19 virus Surgical History History of partial hysterectomy History of bunionectomy History of tubal ligation Family History Father Hypertension Alcoholism Mother Acute CVA (cerebrovascular accident) Stroke Son In good health Daughter In good health Social History Housing: House Alcohol intake: never Patient Tobacco Use Status: Never used Tobacco e-Cigarette/Vaping Use: Never Used service: No Current occupational status: employed 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 Cognitive needs: No Hearing needs: No Vision needs: No Assessment & Plan Assessment & Plan (1) DMII (diabetes mellitus, type 2): Code(s): E11.9 - Type 2 diabetes mellitus without complications Qualifiers: Diabetes mellitus complication status: with hyperglycemia Diabetes mellitus correction insulin use: without terminal clerk use Qualified Code(s): E11.65 - Type 2 diabetes mellitus with hyperglycemia Plan: Wt:96 Kg ( 10/2023 ), 90 kg (12/2023) Est kcal needs as per MSJ: 4481-3231 (40% carb, 30% protein/fat) Est fluid needs as per 25-30 ml/d: 2700 Est prot per day as per 1 g/kg bw: 90 Recommend fiber intake : 8-10 g per day and gradually increase to 25-28 g per day for women and 35-38 g for men or as tolerated Recommend sodium intake per day : less than 2000 mg Educated patient on: ( R = reviewed V = verbalizes understanding N/R = needs review N/A = not applicable * Food sources of carbohydrate, adequate serving sizes and its role in various health conditions: R * Differences between complex carbohydrates a simple carbohydrates, role of fiber in diet: R * Lean protein sources of foods: R V NR * Differences between types of fats and role in diet (mono on saturated fat fat ty acids, saturated fatty acids, trans fats): R basic * Food sources of sodium in salt and healthy modifications for heart health in kidney health: R V R/V * Vitamins and minerals: R V N/R * Healthy plate method concept: R * Physical activity: Benefits a precaution: R V N/R * Hypoglycemia protocol (rule of 15): R V N/R * Dietary prevention of Hyperglycemia: R Patient Instructions: Continue working on reducing on portions of starches, choose high fiber /complex carbs Include a serving of protein at lunch time Read your labels and choose lower sodium foods monitor your blood sugar as prescribed by your doctor Coding Level of Care Code Nutr Indiv Subseq (91653) Diagnoses Type 2 diabetes mellitus with hyperglycemia, without long-term current use of insulin E11.65 Diabetes mellitus complication status: with hyperglycemia Diabetes mellitus terminal clerk insulin use: without terminal clerk use Time Spent (min) 30
== END 2023-12-29 13:34 | disposition home or self-care (01) ==
PROVIDERS: PCP Physician Assistant; Visit Provider Dietitian, Registered
DX: E11.65 Type 2 diabetes mellitus with hyperglycemia (principal)

== ENCOUNTER → 2023-12-29 12:58 | Outpatient (BNVA) | payer OTHER, SELFPAY | PROVIDERS: PCP Physician Assistant; Visit Provider Dietitian, Registered | DX: E11.65 Type 2 diabetes mellitus with hyperglycemia (principal); E66.9 Obesity, unspecified; Z68.33 Body mass index [BMI] 33.0-33.9, adult; Z71.3 Dietary counseling and surveillance | CPT/HCPCS: 97803 ==

== ENCOUNTER 2024-02-08 11:28 | Outpatient (AMB) | payer OTHER, SELFPAY ==
[2024-02-08 11:30] VITALS: BP 140/86; PULSE 78; O2SAT 98; BMI 32.8
--- NOTE | 2024-02-08 11:30 | MHC.PC.OV ---
Vital Signs 02/08/24 11:30 Height 5 ft 5 in Weight 197 lb 4 oz BMI 32.8 BP 140/86 H Blood Pressure Location Lt brachial Position Sitting Pulse 78 Pulse Source Pulse Oximeter Pulse Oximetry (%) 98 Oxygen Delivery Method Room Air Intake Visit Reasons: PE Intake Note: Patient is here today for a physical. Fitter Placer Required: No Accompanied by: Self / Same As Patient Allergies No Known Allergies Allergy (Verified 02/08/24 11:38) Medication List - Last Reconciled 02/08/24 by Shantanu Leal PA-C blood sugar diagnostic (FreeStyle Lite Strips) Test once a day blood-glucose meter (FreeStyle [place] Lite kit) As directed cholecalciferol (vitamin D3) 50 mcg PO DAILY cyclobenzaprine 5 mg PO BEDTIME PRN hydrochlorothiazide 12.5 mg PO DAILY 90 days lancets (FreeStyle Lancets) Test once a day metformin ER 500 mg PO DAILY 30 days naproxen 500 mg PO BID PRN omeprazole 40 mg PO DAILY 90 days semaglutide (Ozempic) 0.5 mg (0.736 mL) subcut QWEEK simvastatin 40 mg PO BEDTIME Tobacco use date assessed: 11/10/23 Dental Screening Dental Screen Date: 11/10/23 HPI PE HPI Details Patient is a 58-year-old female here today for a annual physical.? Patient has a past medical history significant for hypothyroidism, osteoarthritis of the hip hyperlipidemia, impaired glucose metabolism, obesity. .. Obesity:? Has lost weight since last office visit, today's BMI 32.8.. Continues to have trouble reducing her weight.? She has been much more physically active. She does report some side effect from GLP 1 of constipation. She does also report recently having more hunger toward the end of week. PLAN: Willing to increase her dose of Ozempic to 1 mg weekly. .. GERD: She has been having to use omeprazole on daily basis due to her GERD symptoms being on a daily. She does report eating late at night before she goes to bed. .. Hyperlipidemia: Patient continues on simvastatin 40 mg without side effect. Continue to lipid panel to ensure an appropriate LDL below 100. .. Type 2 diabetes: ?Today's A1c is 5.9 from 6.2. Continues on GLP 1 with good effect. She is also speaking with a rental clerk tool and equipment Has been holding her metformin. As above does report feeling much more hunger toward the end of the week. She is willing to increase her dose of Ozempic. Vaccine: UTD with Tdap , UTD with COVID, need Shingrex . Colon: 2018 - repeat 5 years- Is Due for repeat colonoscopy . Mammogram: 11/2023- BIRADS 1-- Laboratory Tests 08/04/23 11/10/23 11/11/23 15:56 11:18 07:29 Creatinine 0.79 Fasting Glucose 134 H Hgb A1c (Clinic) 6.9 H 6.2 H LDL Cholesterol, C alc [facility] Medical History Impaired glucose metabolism Exposure to COVID-19 virus Surgical History History of partial hysterectomy History of bunionectomy History of tubal ligation Family History Father Hypertension Alcoholism Mother Acute CVA (cerebrovascular accident) Stroke Son In good health Daughter In good health Social History Housing: House Alcohol intake: never Patient Tobacco Use Status: Never used Tobacco e-Cigarette/Vaping Use: Never Used service: No Current occupational status: employed 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 Marc Taylor, Kathie Patel, Rogelio Mercado and colleagues, with an educational sonia from [employer]. Review of Systems Const Denies body aches, Denies chills, Denies excessive sweating, Denies fatigue, Denies fever(s) and Denies headache(s) Eyes Denies blurry vision ENT Denies dysphagia, Denies vertigo, Denies dizziness, Denies headache(s), Denies hearing loss and Denies tinnitus Card Denies chest pain, Denies chest pain with activity, Denies syncope, Denies irregular heart rhythm and Denies dyspnea Resp Denies chest congestion, Denies cough, Denies hemoptysis, Denies dyspnea and Denies wheezing GI Denies abdominal pain, Denies melena, Denies hematochezia, Denies coffee ground emesis, Denies dysphagia, Denies diarrhea, Denies nausea and Denies vomiting Denies urinary frequency, Denies dysuria, Denies urinary hesitancy and Denies urinary urgency Musc Denies arthralgias, Denies limited range of motion, Denies muscle cramps and Denies muscle weakness Skin/Breast Denies rash and Denies skin ulcer Neuro Denies Abnormal speech present, Denies confusion, Denies vertigo, Denies dizziness, Denies syncope, Denies headache(s), Denies memory loss and Denies seizure-like activity Psych Denies anxiety, Denies confusion, Denies depression, Denies memory loss, Denies panic attacks and Denies paranoia Endo Denies excessive sweating, Denies fatigue, Denies flushing, Denies polydipsia and Denies polyuria Aller/Immun Denies wheezing Physical exam (Primary Care) Vital Signs: Last Vital Signs Pulse 78 02/08/24 11:30 BP 140/86 H 02/08/24 11:30 Pulse Ox 98 02/08/24 11:30 Oxygen Delivery Method Room Air 02/08/24 11:30 BMI result Body Mass Index 32.8 Tobacco/Smoking Status: Tobacco use Status Tobacco use date assessed 11/10/23 02/08/24 11:33 Patient Tobacco Use Status Never used Tobacco 02/08/24 11:33 e-Cigarette/Vaping Use Never Used 02/08/24 11:33 Thrive Assessment: Date of Thrive Assessment Date Thrive assessed 11/10/23 02/08/24 11:33 Const General: cooperative, comfortable, no acute distress, alert and awake; No confusion Orientation/consciousness: oriented to person, oriented to place, patient oriented x3 and No confusion HENMT Head: Yes normocephalic Ears: external ears normal and TM's normal bilaterally Face and sinus: No sinus tenderness Mouth: Normal oral and palatal mucosa present and tongue normal Teeth and gingiva: dentition normal and gingiva normal Throat: Yes posterior oropharynx normal, Yes tonsils normal and Yes uvula midline Eyes Conjunctivae: conjunctivae normal Sclerae: sclerae normal Pupils: Equal, round and reactive pupils present EOM: EOMs intact bilaterally Direct Ophthalmoscopy: No no photophobia Neck Neck: Yes no lymphadenopathy, No tender and Yes no JVD Thyroid: Thyroid normal Carotids: no bruits Chest Chest palpation & inspection: no tenderness Resp Effort & Inspection: normal respiratory effort, no audible wheezes, not labored and no stridor Auscultation: no crackles, no rales, no rhonchi and no wheezes Cardio Jugular venous distension: no JVD Rate: regular rate, not bradycardic and not tachycardic Rhythm: regular rhythm Bruits: no carotid bruits Peripheral pulses: Peripheral pulses 2+ throughout GI Inspection: Yes normal to inspection, No abdominal wall ecchymosis and No visible herniation Palpation (GI): Soft to palpation, nontender, no guarding, not rigid and No hepatosplenomegaly present Auscultation: normoactive bowel sounds General: Yes no CVA tenderness Back/Spine/Pelvis Back: no CVA tenderness and No back tenderness Cervical Spine: cervical ROM normal Thoracic/Lumbar Spine: thoracic and lumbar spine normal to inspection, straight leg raise negative bilaterally, No thoraco-lumbar ROM limited and No lumbar spinal tenderness Skin Lesions: no lesions Rashes: no rashes Wounds: no wounds Neuro General: oriented to person, oriented to place, patient oriented x3, CN's II-XI intact bilaterally and No confusion Cranial nerves: Yes Equal, round and reactive pupils present and Yes Normal accommodation reflex present Cognition (Neuro): normal cognition Speech: No Abnormal speech present Gait exam (Neuro): Normal gait present Motor exam (neuro): 5/5 motor strength present throughout Extrem Right upper extremity: full ROM; no cyanosis Left upper extremity: full ROM; no cyanosis Right lower extremity: no edema Left lower extremity: no edema Psych Appearance: grossly normal Mental Status: mental status grossly normal Affect: normal affect Attitude: cooperative Thought process: Normal thought process present Results AMB Hemoglobin A1c AMB Hemoglobin A1c 5.9 % Last Edit by CLARIBEL Lopez on 02/08/24 11:48 Results Reviewed Results Reviewed: Laboratory Last Values Hgb A1c (Clinic) 5.9 % (4.0-6.0) 02/08/24 11:34 Assessment and Plan Assessment & Plan (1) Annual physical exam: Code(s): Z00.00 - Encounter for general adult medical examination without abnormal findings (2) DMII (diabetes mellitus, type 2): Code(s): E11.9 - Type 2 diabetes mellitus without complications Qualifiers: Diabetes mellitus complication status: with hyperglycemia Diabetes mellitus middle or intermediate school principal insulin use: without middle or intermediate school principal use Qualified Code(s): E11.65 - Type 2 diabetes mellitus with hyperglycemia Plan: A1c has improved to 5.9. She continues on Ozempic with good effect. Did have some constipation as a side effect. She does admit to feeling some hunger toward the end of the week. She has willing to the Ozempic to 1 mg weekly Goal A1c is to be below 7.0 (3) HLD (hyperlipidemia): Code(s): E78.5 - Hyperlipidemia, unspecified Qualifiers: Hyperlipidemia type: mixed hyperlipidemia Qualified Code(s): E78.2 - Mixed hyperlipidemia Plan: patient continues on statin therapy with good effect. Will get more recent lipid panel. Goal LDL to be below 100 due to her new onset diabetes. (4) Obese: Code(s): E66.9 - Obesity, unspecified Qualifiers: Body mass index: BMI 35.0-35.9 Obesity classification: adult class 2 (BMI 35 - 39.9) Obesity type: due to excess calories Serious obesity comorbidity presence: with serious comorbidity Qualified Code(s): E66.01 - Morbid (severe) obesity due to excess calories; Z68.35 - Body mass index [BMI] 35.0-35.9, adult Plan: Has lost significant amount of weight since starting GLP 1 Continues to be more physically active (5) HTN (hypertension): Code(s): I10 - Essential (primary) hypertension Qualifiers: Hypertension type: primary hypertension Qualified Code(s): I10 - Essential (primary) hypertension Plan: Blood pressure elevated today in office. Continues on hydrochlorothiazide 12.5. Will add on LEELA-inhibitor for renal protection due to diabetes. Advised to monitor blood pressure at home with goal blood pressure to be below 140/90 (6) Screening for colon cancer: Code(s): Z12.11 - Encounter for screening for malignant neoplasm of colon Plan: Patient is due for screening colonoscopy. Orders: Orders AMB Hemoglobin A1c Today E11.65 - Type 2 diabetes mellitus with hyperglycemia Complete Blood Count no Diff Today I10 - Essential (primary) hypertension Comprehensive [place]. Panel Fast Today E11.65 - Type 2 diabetes mellitus with hyperglycemia Microalbumin, Random (w Creat) Today I10 - Essential (primary) hypertension Lipid Panel Today E78.2 - Mixed hyperlipidemia Referrals Gastroenterology Referral Z12.11 - Encounter for screening for malignant neoplasm of colon Medications: New semaglutide (Ozempic) 1 mg (0.75 mL) subcut QWEEK 3 mL 3RF 4 weeks E11.65 - Type 2 diabetes mellitus with hyperglycemia lisinopril-hydrochlorothiazide 10-12.5 mg 1 tab PO DAILY 90 tabs 1RF 90 days E11.65 - Type 2 diabetes mellitus with hyperglycemia Discontinued hydrochlorothiazide Discontinued Reason: Doctor's Order 12.5 mg PO DAILY 90 days 90 tabs 1RF I10 - Essential (primary) hypertension On Hold semaglutide (Ozempic) Hold Comment: Doctor's Order 0.5 mg (0.736 mL) subcut QWEEK 3 mL 3RF E11.65 - Type 2 diabetes mellitus with hyperglycemia Patient Instructions: Goal: A1c to remain below 7.0, blood pressure to be below 140/90. monitor blood pressure Barriers: Adherence to physical activity and healthy eating habits Coding Level of Care Code Est Pt Prev Care 40-64y(59813) Diagnoses Annual physical exam Z00.00 Type 2 diabetes mellitus with hyperglycemia, without long-term current use of insulin E11.65 Diabetes mellitus complication status: with hyperglycemia Diabetes mellitus middle or intermediate school principal insulin use: without middle or intermediate school principal use Mixed hyperlipidemia E78.2 Hyperlipidemia type: mixed hyperlipidemia Class 2 severe obesity due to excess calories with serious comorbidity and body mass index (BMI) of 35.0 to 35.9 in adult E66.01; Z68.35 Body mass index: BMI 35.0-35.9 Obesity classification: adult class 2 (BMI 35 - 39.9) Obesity type: due to excess calories Serious obesity comorbidity presence: with serious comorbidity Primary hypertension I10 Hypertension type: primary hypertension Screening for colon cancer Z12.11
== END 2024-02-08 12:07 | disposition home or self-care (01) ==
PROVIDERS: PCP Physician Assistant; Visit Provider Physician Assistant
DX: Z00.00 Encounter for general adult medical examination without abnormal findings (principal); E11.65 Type 2 diabetes mellitus with hyperglycemia; E78.2 Mixed hyperlipidemia; E66.01 Morbid (severe) obesity due to excess calories; Z68.35 Body mass index [BMI] 35.0-35.9, adult; I10 Essential (primary) hypertension; Z12.11 Encounter for screening for malignant neoplasm of colon
CPT/HCPCS: 83036; 99396

== ENCOUNTER 2024-03-09 08:25 | Outpatient (AMB) | payer OTHER, SELFPAY ==
--- NOTE | 2024-03-09 08:31 | A.OFFVIS_ITS ---
Vital Signs 03/09/24 08:35 Height 5 ft 5 in Weight 190 lb BMI 31.6 BP 113/67 Blood Pressure Location Lt brachial Position Sitting Pulse 82 Intake Visit Reasons: Pre Colonoscopy screening Intake Note: Patient new consult or 2nd pre colonoscopy. Patient cc: constipation on and off. Denies any other GI issues. Creative Technologist Required: No Accompanied by: Self / Same As Patient Allergies No Known Allergies Allergy (Verified 02/08/24 11:38) Medication List - Last Reconciled 03/09/24 by Jason Baxter MD blood sugar diagnostic (FreeStyle Lite Strips) Test once a day blood-glucose meter (FreeStyle [place] Lite kit) As directed cholecalciferol (vitamin D3) 50 mcg PO DAILY cyclobenzaprine 5 mg PO BEDTIME PRN lancets (FreeStyle Lancets) Test once a day lisinopril-hydrochlorothiazide 10-12.5 mg 1 tab PO DAILY 90 days metformin ER 500 mg PO DAILY 30 days naproxen 500 mg PO BID PRN omeprazole 40 mg PO DAILY 90 days semaglutide (Ozempic) 1 mg (0.75 mL) subcut QWEEK 4 weeks simvastatin 40 mg PO BEDTIME HPI HPI Pre Colonoscopy screening: Details: GI clinic visit for this 58 year old female with GERD, hypothyroidism, osteoarthritis of the hip hyperlipidemia, impaired glucose metabolism, obesity self referred to schedule a colonoscopy. [facility] IM[facility]ING STUDIES: No recent GI imaging studies ENDOSCOPIC STUDIES: 10/[address] BEGUM: A small pedunculated adenomatous polyp at 20 cms was removed Follow-up colonoscopy was advised in 5 years. TODAY'S VISIT: Pt complains of intermittent constipation and takes stool softener daily and metamucil every 1-2 days. Intermittent heartburn and takes Omeprazole 40 mg PO prn. Patient denies symptoms of dysphagia, nausea, vomiting, change in appetite or weight. Denies recent diarrhea, black stools or rectal bleeding. Patient denies major cardiac or pulmonary problems. Diagnosed with sleep apnea and not using a CPAP machine. Denies problems with anesthesia in the past. Denies being on chronic anticoagulation. 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 Cognitive needs: No Hearing needs: No Vision needs: No Review of Systems Const Denies fever(s), Reports headache(s) and Denies weight loss Eyes Denies eye discharge and Denies irritation ENT Reports Normal hearing present, Denies dysphagia, Denies dizziness and Reports headache(s) Card Denies chest pain, Denies leg edema, Denies dyspnea on exertion and Reports other (Palpitations) Resp Denies cough, Denies dyspnea on exertion and Denies wheezing GI Denies abdominal pain, Reports bloating, Denies change in bowel habits, Reports constipation, Denies dysphagia and Reports heartburn Denies difficulty voiding, Denies dysuria and Reports other (LMP 10/2009) Musc Denies back pain, Denies arthralgias and Reports other (arthritis) Skin/Breast Denies pruritus, Denies rash and Denies jaundice Neuro Reports Normal hearing present, Denies Abnormal speech present, Denies dizziness, Reports headache(s) and Denies seizure-like activity Psych Denies anxiety, Denies depression and Denies panic attacks Endo Denies cold intolerance, Denies flushing and Denies heat intolerance James/Lymph Denies easy bleeding and Denies easy bruising Aller/Immun Denies wheezing Physical Exam Vital Signs: Last Vital Signs Pulse 82 03/09/24 08:35 BP 113/67 03/09/24 08:35 BMI result Body Mass Index 31.6 Const General: healthy appearing and no acute distress Nutritional Appearance: obese Orientation/consciousness: patient oriented x3 Limitations: no limitations HEENT Head: Yes normal to inspection Ears: hearing grossly normal bilaterally Eyes Sclerae: sclerae normal Pupils: Equal, round and reactive pupils present Neck Neck: Yes normal visual inspection Chest Chest palpation & inspection: normal inspection of the chest Resp Effort & Inspection: normal respiratory effort Auscultation: clear to auscultation bilaterally Cardio Palpation: normal PMI Rate: regular rate Rhythm: regular rhythm Heart sounds: S1 normal heart sound present, S2 normal heart sound present and no murmurs GI Palpation (GI): Soft to palpation, nontender and No hepatosplenomegaly present Auscultation: normal bowel sounds Rectal Exam - Female: deferred Skin General skin exam: no rashes or lesions noted Neuro General: patient oriented x3, gait normal and moves all extremities Cranial nerves: Yes Equal, round and reactive pupils present and Yes Normal hearing present Speech: No Abnormal speech present Psych Appearance: grossly normal Mental Status: mental status grossly normal Assessment & Plan Assessment & Plan (1) GERD (gastroesophageal reflux disease): Code(s): K21.9 - Gastro-esophageal reflux disease without esophagitis Category: Medical Qualifiers: Esophagitis presence: without esophagitis Qualified Code(s): K21.9 - Gastro-esophageal reflux disease without esophagitis (2) History of colon polyps: Comment: 10/[address] BEGUM: A small pedunculated adenomatous polyp at 20 cms was removed Follow-up colonoscopy was advised in 5 years. Code(s): Z86.010 - Personal history of colonic polyps Category: Medical Plan 58 year old female with GERD, hypothyroidism, osteoarthritis of the hip hyperlipidemia, impaired glucose metabolism, obesity self referred to schedule a colonoscopy. Pt complains of intermittent constipation and takes stool softener daily and metamucil every 1-2 days. Intermittent heartburn and takes Omeprazole 40 mg PO prn. ENDOSCOPIC STUDIES: 10/2017 [address] BEGUM: A small pedunculated adenomatous polyp at 20 cms was removed Follow-up colonoscopy was advised in 5 years. Patient was advised to schedule a colonoscopy (surveillance of colon polyps) with dulcolax and Miralax split dose prep. Colonoscopy scheduled on 09/08/24 FU in 6 months after colonoscopy Medications: New bisacodyl (Dulcolax (bisacodyl)) Take 2 tablets at 12 pm starting 5 days before colonoscopy 10 mg (2 x 5 mg) PO ONCE 5 days 10 tabs 0RF polyethylene glycol 3350 (Miralax) Mix Miralax with 64 oz(8 cups) of Crystal light. Take 2 tablets of Dulcolax qt 12 pm. Wait to have your 1st bowel movement, then begin drinking Miralax. Drink a glass of Miralax every 10-15 minutes until you are finished. You will drink at least another 4 cups of clear liquid of your choice over the next 2 hours. Please drink as many clear liquids as possible You may have clear liquids up to four hours before your procedure 17 grams PO DAILY 1 day 238 grams 0RF colon prep Coding Level of Care Code New Pt Level 4 (50196) Diagnoses Gastroesophageal reflux disease without esophagitis K21.9 Esophagitis presence: without esophagitis History of colon polyps Z86.010 Time Spent (min) 24
[2024-03-09 08:35] VITALS: BP 113/67; PULSE 82; BMI 31.6
== END 2024-03-09 09:35 | disposition home or self-care (01) ==
PROVIDERS: PCP Physician Assistant; Visit Provider Internal Medicine Gastroenterology
DX: K21.9 Gastro-esophageal reflux disease without esophagitis (principal); Z86.010 Personal history of colon polyps
CPT/HCPCS: 99204

== ENCOUNTER → 2024-03-09 08:25 | Outpatient (BNVA) | payer OTHER, SELFPAY | PROVIDERS: PCP Physician Assistant; Visit Provider Internal Medicine Gastroenterology ==

== ENCOUNTER 2024-03-20 13:24 | Outpatient (AMB) | payer OTHER, SELFPAY ==
[2024-03-20 13:27] VITALS: BMI 32.1
--- NOTE | 2024-03-20 13:27 | MHC.AMNUTRGE ---
VS Expanded 03/20/24 13:27 Height 5 ft 5 in Weight 192 lb 14.472 oz BMI 32.1 Intake Visit Reasons: T2DM/CONFIRMED Allergies No Known Allergies Allergy (Verified 02/08/24 11:38) Nutrition Presentation Details: Pt presents for MNT f/u for T2DM Pt reports doing well, working on diet modifications following healthy plate method Walking 30min 5 times a week BS Monitoring Most Recent Diabetes Results: Microalb/Creat Ratio 5.6 ug/mg cr (<30) 11/11/23 Cholesterol 161 mg/dL (<200) 11/11/23 HDL Cholesterol 52 mg/dL (>40) 11/11/23 Triglycerides 108 mg/dL (<150) 11/11/23 Creatinine 0.79 mg/dL (0.5-1.4) 11/11/23 Blood Urea Nitrogen 15 mg/dL (9-16) 11/11/23 Sodium 146 mmol/L (135-145) H 11/11/23 Potassium 4.2 mmol/L (3.3-5.1) 11/11/23 Chloride 110 mmol/L (96-108) H 11/11/23 Carbon Dioxide 30 mmol/L (22-29) H 11/11/23 Calcium 9.7 mg/dL (8.4-10.2) 11/11/23 AST 26 U/L (5-31) 11/11/23 ALT 29 U/L (0-31) 11/11/23 Total Protein 7.2 g/dL (6.5-8.0) 11/11/23 Albumin 4.1 g/dL (3.5-5.0) 11/11/23 [facility] Medical History Impaired glucose metabolism Exposure to COVID-19 virus Surgical History History of partial hysterectomy History of bunionectomy History of tubal ligation Family History Father Hypertension Alcoholism Mother Acute CVA (cerebrovascular accident) Stroke Son In good health Daughter In good health Social History Housing: House Alcohol intake: never Patient Tobacco Use Status: Never used Tobacco e-Cigarette/Vaping Use: Never Used service: No Current occupational status: employed 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 Cognitive needs: No Hearing needs: No Vision needs: No Assessment & Plan Assessment & Plan (1) DMII (diabetes mellitus, type 2): Code(s): E11.9 - Type 2 diabetes mellitus without complications Category: Medical Qualifiers: Diabetes mellitus complication status: with hyperglycemia Diabetes mellitus group home insulin use: without group home use Qualified Code(s): E11.65 - Type 2 diabetes mellitus with hyperglycemia Plan: Wt:96 Kg ( 10/2023 ), 90 kg (12/2023), 87.7 kg (02/2024) Est kcal needs as per MSJ: [id number] (40% carb, 30% protein/fat) Est fluid needs as per 25-30 ml/d: 2700 Est prot per day as per 1 g/kg bw: 90 Recommend fiber intake : 8-10 g per day and gradually increase to 25-28 g per day for women and 35-38 g for men or as tolerated Recommend sodium intake per day : less than 2000 mg Educated patient on: ( R = reviewed V = verbalizes understanding N/R = needs review N/A = not applicable Food sources of carbohydrate, adequate serving sizes and its role in various health conditions: R Differences between complex carbohydrates a simple carbohydrates, role of fiber in diet: R Lean protein sources of foods: R V Differences between types of fats and role in diet (mono on saturated fat fatty acids, saturated fatty acids, trans fats): R basic Food sources of sodium in salt and healthy modifications for heart health in kidney health: R Vitamins and minerals: R Healthy plate method concept: R Physical activity: Benefits a precaution: R V Hypoglycemia protocol (rule of 15): R V Dietary prevention of Hyperglycemia: R Patient Instructions: Continue working on following healthy plate method Keep hydrated by having water with meals /snacks Include calcium sources of foods in your diet, aim at 1200 mg/d Coding Level of Care Code Nutr Indiv Subseq (24384) Diagnoses Type 2 diabetes mellitus with hyperglycemia, without long-term current use of insulin E11.65 Diabetes mellitus complication status: with hyperglycemia Diabetes mellitus inventory representative insulin use: without group home use Time Spent (min) 20
== END 2024-03-20 13:48 | disposition home or self-care (01) ==
PROVIDERS: PCP Physician Assistant; Visit Provider Dietitian, Registered
DX: E11.65 Type 2 diabetes mellitus with hyperglycemia (principal)

== ENCOUNTER → 2024-03-20 13:24 | Outpatient (BNVA) | payer OTHER, SELFPAY | PROVIDERS: PCP Physician Assistant; Visit Provider Dietitian, Registered | DX: E11.65 Type 2 diabetes mellitus with hyperglycemia (principal); Z71.3 Dietary counseling and surveillance | CPT/HCPCS: 97803 ==

== ENCOUNTER 2024-05-09 11:14 | Outpatient (AMB) | payer OTHER, SELFPAY ==
--- NOTE | 2024-05-09 11:22 | A.OFFPC_ITS ---
Vital Signs 05/09/24 11:23 Height 5 ft 5 in Weight 183 lb 8 oz BMI 30.5 BP 120/72 Blood Pressure Location Lt brachial Position Sitting Pulse 97 Pulse Source Pulse Oximeter Pulse Oximetry (%) 97 Oxygen Delivery Method Room Air Intake Visit Reasons: strep? Intake Note: Patient is here to follow up on for possible strep. Symptoms of headache, sinus pressure and left side towards back of neck. 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 Infection Control Manager: Not Required per policy Accompanied by: Self / Same As Patient Allergies No Known Allergies Allergy (Verified 05/09/24 11:23) Medication List - Last Reconciled 05/09/24 by Courtney Brown PA-C bisacodyl (Dulcolax (bisacodyl)) 10 mg (2 x 5 mg) PO ONCE 5 days blood sugar diagnostic (FreeStyle Lite Strips) Test once a day blood-glucose meter (FreeStyle [place] Lite kit) As directed cholecalciferol (vitamin D3) 50 mcg PO DAILY cyclobenzaprine 5 mg PO BEDTIME PRN lancets (FreeStyle Lancets) Test once a day lisinopril-hydrochlorothiazide 10-12.5 mg 1 tab PO DAILY 90 days naproxen 500 mg PO BID PRN omeprazole 40 mg PO DAILY 90 days polyethylene glycol 3350 (Miralax) 17 grams PO DAILY 1 day semaglutide (Ozempic) 1 mg (0.75 mL) subcut QWEEK 4 weeks simvastatin 40 mg PO BEDTIME Tobacco use date assessed: 05/09/24 Dental Screening Dental Screen Date: 11/10/23 HPI strep? HPI Details 58-year-old female with a past medical h istory of hypothyroidism, osteoarthritis of the hip, hyperlipidemia, impaired glucose tolerance, and obesity last seen by PA coming in for acute problem. Patient states she woke up Wednesday with a sore throat, chills, sinus pressure, pain with swallowing, and ear pressure. Her [id number] tested positive for strep and she has recently seen him. She also has several coworkers and friends and up tested positive for COVID in the last week. Denies any cough, rash, vomiting, diarrhea or constipation. FORMERLY [facility], LATER [facility] Medical History Impaired glucose metabolism Exposure to COVID-19 virus Surgical History History of partial hysterectomy History of bunionectomy History of tubal ligation Family History (Updated 05/09/24 @ 11:23 by WEN Lang) Father Hypertension Alcoholism Mother Acute CVA (cerebrovascular accident) Stroke Son In good health Daughter In good health Other Substance use disorder Social History Housing: House Alcohol intake: never Patient Tobacco Use Status: Never used Tobacco e-Cigarette/Vaping Use: Never Used Second Hand Smoke Exposure: No service: No Current occupational status: employed 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 Marc Taylor, Kathie Patel, Rogelio Mercado and colleagues, with an educational sonia from [employer]. Review of Systems Const Denies body aches, Reports chills, Denies fever(s), Denies headache(s) and Reports poor appetite Eyes Reports no additional complaints ENT Denies dysphagia, Denies dizziness, Denies headache(s), Reports odynophagia and Reports sore throat Card Denies chest pain and Denies dyspnea Resp Denies cough and Denies dyspnea GI Denies abdominal pain, Denies constipation, Denies dysphagia, Denies diarrhea, Denies nausea, Reports odynophagia and Denies vomiting Reports no additional complaints Musc Reports no additional complaints Skin/Breast Reports system reviewed and no additional complaints, except as documented Neuro Denies dizziness and Denies headache(s) Psych Reports no additional complaints Physical exam (Primary Care) Vital Signs: Last Vital Signs Pulse 97 05/09/24 11:23 BP 120/72 05/09/24 11:23 Pulse Ox 97 05/09/24 11:23 Oxygen Delivery Method Room Air 05/09/24 11:23 BMI result Body Mass Index 30.5 Tobacco/Smoking Status: Tobacco use Status Tobacco use date assessed 05/09/24 05/09/24 11:29 Patient Tobacco Use Status Never used Tobacco 05/09/24 11:29 e-Cigarette/Vaping Use Never Used 05/09/24 11:29 Thrive Assessment: Date of Thrive Assessment Date Thrive assessed 11/10/23 05/09/24 11:29 Const General: cooperative, healthy appearing, comfortable and no acute distress Orientation/consciousness: patient oriented x3 [facility] Other: Oropharynx is erythematous without petechiae and scant tonsillar exudate Head: Yes normocephalic Ears: hearing grossly normal bilaterally, TM's normal bilaterally and EAC's normal General nose exam: Normal external nose present Eyes General: appearance normal, both eyes and all related structures Conjunctivae: conjunctivae normal Neck Other: Tenderness to palpation of neck with mild lymphadenopathy Neck: Yes full ROM Resp Effort & Inspection: normal respiratory effort Auscultation: clear to auscultation bilaterally, no crackles, no rales, no rhonchi and no wheezes Cardio Rate: regular rate Rhythm: regular rhythm Skin General skin exam: no rashes or lesions noted Neuro General: patient oriented x3 Gait exam (Neuro): Normal gait present Extrem General: Yes normal to inspection, Yes full ROM and No edema Psych Affect: normal affect Attitude: cooperative Insight: Good insight present (Psych) Judgement: Good judgement present (Psych) Results AMB Rapid Strep AMB Rapid Strep Positive Last Edit by WEN Lang on 05/09/24 11:4 1 Assessment and Plan Assessment & Plan (1) Sore throat: Code(s): J02.9 - Acute pharyngitis, unspecified Plan: Patient does have sore throat and generalized upper respiratory symptoms. Considering she had several COVID positive contacts we will also order for COVID test. (2) Strep pharyngitis: Code(s): J02.0 - Streptococcal pharyngitis Plan: Patient tested positive today in the office for strep throat. Amoxicillin 500 mg b.i.d. x10 days sent to pharmacy. Should take antibiotics as prescribed and complete the entire course given. Antibiotics can be irritating to the stomach and should be taken with food. Avoid sharing food or drinks as you are contagious until 48 hours after starting the antibiotic. After 48 hours you may return to work and remember to replace yo ur toothbrush. You may take Tylenol and Ibuprofen for the pain and fever but should follow the instructions on the bottle and not exceed the daily recommended amount. Plan This note was constructed using voice recognition software. While every effort has been made to ensure accuracy and industrial staff nurse, still areas may have been included sometimes these areas may affect the content or meeting of the given symptoms. Total time spent caring for the patient today was 20 minutes. This includes time spent before the visit reviewing the chart, time spent during the visit, and time spent after the visit and documentation. Orders: Orders AMB Rapid Strep Screen Today Z13.9 - Encounter for screening, unspecified COVID-19 ID NOW ([place]) Today J02.9 - Acute pharyngitis, unspecified Medications: New amoxicillin 500 mg PO BID 10 days 20 caps 0RF Coding Level of Care Code Est Pt Level 3 (06027) Diagnoses Sore throat J02.9 Strep pharyngitis J02.0
[2024-05-09 11:23] VITALS: BP 120/72; PULSE 97; O2SAT 97; BMI 30.5
== END 2024-05-09 11:56 | disposition home or self-care (01) ==
PROVIDERS: PCP Physician Assistant
DX: J02.0 Streptococcal pharyngitis (principal)
CPT/HCPCS: 87880; 99213

== ENCOUNTER 2024-05-09 12:03 | Outpatient (REF) | payer OTHER, SELFPAY ==
[2024-05-09 13:11] LABS: COVID-19 Test Negative (Negative); IDNOW Serial# 6674DD1D
== END 2024-05-09 12:04 | disposition home or self-care (01) ==
LOC: HO.LAB 12:03
PROVIDERS: PCP Physician Assistant
DX: J02.9 Acute pharyngitis, unspecified (principal)
CPT/HCPCS: 87635

== ENCOUNTER 2024-05-26 09:14 | Outpatient (REF) | payer OTHER, SELFPAY ==
[2024-05-26 10:19] LABS: Hematocrit 38.8 % (37.0-47.0); Hemoglobin 12.5 g/dl (12.0-16.0); Mean Corpuscular HGB Conc 32.2 g/dl (31.0-35.0); Mean Corpuscular Hemoglobin 28.4 pg (27.0-33.0); Mean Corpuscular Volume 88.2 fL (80.0-98.0); Mean Platelet Volume 10.4 fL (9.4-12.3); Platelet Count 326 X10*3/uL (160-400); Red Cell Distribution Width 13.7 % (11.0-16.0); White Blood Count 8.1 X10*3/uL (4.8-10.8)
[2024-05-26 11:21] LABS: Creatinine Urine 180.35 mg/dL; Microalbum/Creatinine Ratio Ur 3.8 ug/mg cr (<30)
[2024-05-26 11:26] LABS: Alanine Aminotransferase 17 U/L (0-31); Albumin Level 4.4 g/dL (3.5-5.0); Alkaline Phosphatase 56 U/L (39-117); Anion Gap 10 (12-20); Aspartate Amino Transferase 18 U/L (5-31); Blood Urea Nitrogen 17 mg/dL (9-16); Calcium 10.3 mg/dL (8.4-10.2); Carbon Dioxide 31 mmol/L (22-29); Chloride 106 mmol/L (96-108); Cholesterol 147 mg/dL (<200); Estimated Glomerular Filt Rate > 60; Glucose Fasting 95 mg/dL (60-99); HDL Cholesterol 51 mg/dL (>40); LDL Cholesterol Calculated 83 mg/dL (<100); Potassium 4.4 mmol/L (3.3-5.1); Sodium 143 mmol/L (135-145); Total Protein 7.8 g/dL (6.5-8.0); Triglycerides 66 mg/dL (<150)
== END 2024-05-26 09:15 | disposition home or self-care (01) ==
LOC: HO.LAB 09:14
PROVIDERS: PCP Physician Assistant; Visit Provider Physician Assistant
DX: I10 Essential (primary) hypertension (principal); E11.65 Type 2 diabetes mellitus with hyperglycemia; E78.2 Mixed hyperlipidemia
CPT/HCPCS: 36415; 80053; 80061; 82043; 82570; 85027

== ENCOUNTER 2024-06-05 13:05 | Outpatient (AMB) | payer OTHER, SELFPAY ==
--- NOTE | 2024-06-05 13:14 | A.OFFPC_ITS ---
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: No Accompanied by: Self / Same As Patient Allergies No Known Allergies Allergy (Verified 06/05/24 13:20) Medication List - Last Reconciled 06/05/24 by Shantanu Leal PA-C amoxicillin 500 mg PO BID 10 days bisacodyl (Dulcolax (bisacodyl)) 10 mg (2 x 5 mg) PO ONCE 5 days blood sugar diagnostic (FreeStyle Lite Strips) Test once a day blood-glucose meter (FreeStyle [place] Lite kit) As directed cholecalciferol (vitamin D3) 50 mcg PO DAILY cyclobenzaprine 5 mg PO BEDTIME PRN lancets (FreeStyle Lancets) Test once a day lisinopril-hydrochlorothiazide 10-12.5 mg 1 tab PO DAILY 90 days naproxen 500 mg PO BID PRN omeprazole 40 mg PO DAILY 90 days polyethylene glycol 3350 (Miralax) 17 grams PO DAILY 1 day semaglutide (Ozempic) 1 mg (0.75 mL) subcut QWEEK 4 weeks simvastatin 40 mg PO BEDTIME Tobacco use date assessed: 05/09/24 Dental Screening Dental Screen Date: 11/10/23 HPI office visit HPI Details .. Patient is a 58-year-old female here today for a follow-up visit.? Patient has a past medical history significant for hypothyroidism, osteoarthritis of the hip hyperlipidemia, impaired glucose metabolism, obesity. .. Obesity:? Has lost weight since last office visit, today's BMI 30.. Continues to have trouble reducing her weight.? She has been much more physically active. She does report some side effect from GLP 1 of constipation. She does also report recently having more hunger toward the end of week. .. Hyperlipidemia: Patient continues on simvastatin 40 mg without side effect. Continue to lipid panel to ensure an appropriate LDL below 100. .. Type 2 diabetes: Today's A1c of 5.5. Recent fasting blood sugar much improved. Continues on GLP 1 with good effect. She is also speaking with a airline ticket agent Has been holding her metformin. As above does report feeling much more hunger toward the end of the week. She is willing to increase her dose of Ozempic. FORMERLY [facility], [facility] Medical History Impaired glucose metabolism Exposure to COVID-19 virus Surgical History History of partial hysterectomy History of bunionectomy History of tubal ligation Family History Father Hypertension Alcoholism Mother Acute CVA (cerebrovascular accident) Stroke Son In good health Daughter In good health Other Substance use disorder Social History Housing: House Alcohol intake: never Patient Tobacco Use Status: Never used Tobacco e-Cigarette/Vaping Use: Never Used Second Hand Smoke Exposure: No service: No Current occupational status: employed 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 Marc Taylor, Kathie Patel, Rogelio Mercado and colleagues, with an educational sonia from [employer]. Review of Systems Const Denies headache(s) Eyes Denies loss of vision ENT Denies vertigo, Denies dizziness, Denies headache(s) and Denies sore throat Card Denies chest pain, Denies leg edema and Denies lightheadedness Resp Denies cough, Denies hemoptysis and Denies wheezing GI Denies abdominal pain, Denies melena, Denies constipation, Denies diarrhea and Denies vomiting Denies urinary frequency, Denies dysuria and Denies urinary urgency Musc Denies arthralgias, Denies joint swelling, Denies numbness and Denies tingling Neuro Denies Abnormal speech present, Denies behavioral changes, Denies vertigo, Denie s dizziness, Denies headache(s), Denies loss of vision, Denies memory loss, Denies numbness and Denies tingling Psych Denies anxiety, Denies behavioral changes, Denies depression, Denies memory loss and Denies panic attacks James/Lymph Denies easy bleeding and Denies easy bruising Aller/Immun Denies wheezing Physical exam (Primary Care) Vital Signs: Last Vital Signs Pulse 84 06/05/24 13:15 BP 112/70 06/05/24 13:15 Pulse Ox 97 06/05/24 13:15 Oxygen Delivery Method Room Air 06/05/24 13:15 BMI result Body Mass Index 30.0 Tobacco/Smoking Status: Tobacco use Status Tobacco use date assessed 05/09/24 06/05/24 13:18 Patient Tobacco Use Status Never used Tobacco 06/05/24 13:18 e-Cigarette/Vaping Use Never Used 06/05/24 13:18 Thrive Assessment: Date of Thrive Assessment Date Thrive assessed 11/10/23 06/05/24 13:18 Const General: healthy appearing, no acute distress, alert and awake Nutritional Appearance: well nourished Orientation/consciousness: oriented to person, oriented to place and oriented to time HENMT Ears: TM's normal bilaterally General nose exam: Normal nasal mucous membranes and turbinates present Eyes Conjunctivae: conjunctivae normal Sclerae: sclerae normal Pupils: Equal, round and reactive pupils present Neck Neck: Yes no lymphadenopathy and Yes no JVD Thyroid: Thyroid normal Carotids: no bruits Resp Effort & Inspection: normal respiratory effort and not tachypneic Auscultation: no crackles, no rales, no rhonchi and no wheezes Cardio Rate: regular rate Rhythm: regular rhythm Heart sounds: no murmurs and normal S1 and S2 GI Palpation (GI): Soft to palpation, nontender, no hepatomegaly and no splenomegaly Auscultation: normal bowel sounds Skin General skin exam: no rashes or lesions noted and dry skin Neuro General: oriented to person, oriented to place and oriented to time Cranial nerves: Yes Equal, round and reactive pupils present Speech: No Abnormal speech present Gait exam (Neuro): Normal gait present Motor exam (neuro): no tremor noted Extrem Right upper extremity: full ROM Left upper extremity: full ROM Right lower extremity: full ROM; no edema Left lower extremity: full ROM; no edema Psych Mental Status: mental status grossly normal Speech and movement: Normal speech and movement present Affect: normal affect Attitude: cooperative Thought process: Normal thought process present Results AMB Hemoglobin A1c AMB Hemoglobin A1c 5.5 % Last Edit by CLARIBEL Lopez on 06/05/24 13:37 Coding Level of Care Code Est Pt Level 4 (48077) Diagnoses Primary hypertension I10 Hypertension type: primary hypertension Type 2 diabetes mellitus with hyperglycemia, without long-term current use of insulin E11.65 Diabetes mellitus superintendent [employer] insulin use: without superintendent marine [employer] use Diabetes mellitus complication status: with hyperglycemia Cubital tunnel syndrome on left G56.22 Mixed hyperlipidemia E78.2 Hyperlipidemia type: mixed hyperlipidemia Assessment & Plan Assessment & Plan (1) HTN (hypertension): Code(s): I10 - Essential (primary) hypertension Category: Medical Qualifiers: Hypertension type: primary hypertension Qualified Code(s): I10 - Essential (primary) hypertension Plan: Patient's blood pressure acceptable today in office. Has lost significant amount of weight and feeling much better. Will discontinue hydrochlorothiazide due to fear of hypotension. Advised to continue monitoring pressure at home with goal blood pressure to remain below 140/90 and above 100/60. 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 Continues with Ozempic 1 mg weekly. Today's A1c of 5.5. She will continue Ozempic 1 mg weekly. Goal A1c is to remain below 6.5 (3) Cubital tunnel syndrome on left: Code(s): G56.22 - Lesion of ulnar nerve, left upper limb Category: Medical Plan: Patient does report whenever she raises her left arm and bends her elbow or lays down at benzos elbow she gets a numbness feeling in her forearm and hand. Symptoms to be most consistent with a positional neuropathy. Advised on positional modifications. (4) HLD (hyperlipidemia): Code(s): E78.5 - Hyperlipidemia, unspecified Category: Medical Qualifiers: Hyperlipidemia type: mixed hyperlipidemia Qualified Code(s): E78.2 - Mixed hyperlipidemia Plan: Patient's most recent lipid panel showing excellent control over total cholesterol and LDL. Has lost significant amount of weight since starting GLP 1. Will reduce her simvastatin dose to 10 mg and recheck lipid panel in 6 months. Goal LDL to remain below 100 Orders: Orders AMB Hemoglobin A1c Today E11.65 - Type 2 diabetes mellitus with hyperglycemia Lipid Panel Today E78.2 - Mixed hyperlipidemia Vitamin D 25-OH Total Today R79.89 - Other specified abnormal findings of blood chemistry TSH reflex Free T4 Today E03.9 - Hypothyroidism, unspecified Comprehensive [place]. Panel Fast Today E11.65 - Type 2 diabetes mellitus with hyperglycemia Complete Blood Count no Diff Today E11.65 - Type 2 diabetes mellitus with hyperglycemia Microalbumin, Random (w Creat) Today E11.65 - Type 2 diabetes mellitus with hyperglycemia Medications: New simvastatin 10 mg PO DAILY 90 days 90 tabs 1RF E78.2 - Mixed hyperlipidemia, I10 - Essential (primary) hypertension lisinopril 10 mg PO DAILY 90 tabs 1RF I10 - Essential (primary) hypertension Discontinued lisinopril-hydrochlorothiazide 10-12.5 mg Discontinued Reason: Doctor's Order 1 tab PO DAILY 90 days 90 tabs 1RF E11.65 - Type 2 diabetes mellitus with hyperglycemia simvastatin Discontinued Reason: Doctor's Order 40 mg PO BEDTIME 90 tabs 2RF E78.2 - Mixed hyperlipidemia
[2024-06-05 13:15] VITALS: BP 112/70; PULSE 84; O2SAT 97
== END 2024-06-05 13:37 | disposition home or self-care (01) ==
PROVIDERS: PCP Physician Assistant; Visit Provider Physician Assistant
DX: I10 Essential (primary) hypertension (principal); E11.65 Type 2 diabetes mellitus with hyperglycemia; G56.22 Lesion of ulnar nerve, left upper limb; E78.2 Mixed hyperlipidemia

== ENCOUNTER → 2024-06-05 13:05 | Outpatient (BNVA) | payer OTHER, SELFPAY | PROVIDERS: PCP Physician Assistant; Visit Provider Physician Assistant | DX: I10 Essential (primary) hypertension (principal); E11.65 Type 2 diabetes mellitus with hyperglycemia; G56.22 Lesion of ulnar nerve, left upper limb; E78.2 Mixed hyperlipidemia; Z79.85 Long-term (current) use of injectable non-insulin antidiabetic drugs; Z79.899 Other long term (current) drug therapy | CPT/HCPCS: 83036 ==

== ENCOUNTER 2024-09-08 06:59 | Day surgery (SDC) | payer OTHER, SELFPAY ==
[2024-09-08 07:22] VITALS: BP 143/84; PULSE 80; RESP 16; TEMP 36.2; O2SAT 98; BMI 28.6
--- NOTE | 2024-09-08 07:36 | MHC.SHP ---
Pre-Procedural Eval Section A - 24 Hr Update-Section A only Date of Service: 09/08/24 The patient is an INPATIENT: No The patient has been examined within 24 hours of the surgical procedure. The History & Physical has been completed within 30 days and I have reviewed it.: No Section B - Complete if H&P > 30 days Chief Complaint: Surveillance for colon polyps Relevant Family History (Specify if Yes): No Relevant Social History: None Present Medications: see Short Stay Collaborative assessment Medical History: Significant History (Impaired glucose metabolism Exposure to COVID-19 virus) History of Previous Operations: Relevant previous surgery/procedure and date(s) (History of partial hysterectomy History of bunionectomy History of tubal ligation) Allergies: Allergies Allergy/AdvReac Type Severity Reaction Status Date / Time No Known Allergies Allergy Verified 09/08/24 07:14 Review of Systems Sugical H&P ROS: Negative: Constitution, Cardiovascular, Respiratory and Gastrointestinal Exam Surgical H&P Exam: Normal: Heart, Normal: Lungs, Normal: Extremities and Normal: Abdomen Plan Diagnosis/Plan: Unchanged I have reviewed the history and physical and performed a pertinent physical examination on my patient. No changes have occurred unless specified. Time Spent With Patient Time: Total time managing care of this patient today ____ minutes.
[2024-09-08] MEDS: Lactated Ringers 1,000 ML 100 ML IVCONT (07:50)
--- NOTE | 2024-09-08 08:17 | HO.ANESPROP2 ---
Documented by User: Nithya Paez NP 09/07/24 09:31 HPI - Anesthesia Eval Consult details Narrative: 59yo F for Colonoscopy Anesthesia Pre-Procedure Meds Is the patient on any of the following meds?: GLP1/DPP4 PMFSH Active Problems Active Problems: All Active Problems Cubital tunnel syndrome on left (Acute) Strep pharyngitis (Acute) Sore throat (Acute) History of colon polyps (Acute) HTN (hypertension) (Acute) Obese (Acute) DMII (diabetes mellitus, type 2) (Acute) Right ankle swelling (Acute) Low vitamin D level (Acute) Obesity (BMI 30-39.9) (Acute) Screening for colon cancer (Acute) GERD (gastroesophageal reflux disease) (Acute) LUX (obstructive sleep apnea) (Acute) Breast cancer screening (Acute) Witnessed episode of apnea (Acute) Tinea pedis (Acute) Blurred vision, bilateral (Acute) Somatic dysfunction of right sacroiliac joint (Acute) Hip osteoarthritis (Acute) Screening for diabetes mellitus (DM) (Acute) Left hip pain (Acute) Hypothyroidism (Acute) HLD (hyperlipidemia) (Acute) Annual physical exam (Acute) Past Medical History Medical History Hypothyroid Arthritis Diabetes GERD (gastroesophageal reflux disease) Sleep apnea HTN (hypertension) Family History Family History Father Hypertension Alcoholism Mother Acute CVA (cerebrovascular accident) Stroke Son In good health Daughter In good health Other Substance use disorder Surgical History Surgical History History of partial hysterectomy History of bunionectomy History of tubal ligation Social History Social History Housing: House Are you a primary care clinician to a significant other at home: No Do you presently have visiting nurse or other home services: No Alcohol intake: never Patient Tobacco Use Status: Never used Tobacco e-Cigarette/Vaping Use: Never Used Second Hand Smoke Exposure: No Use of substances other than those prescribed or required for medical reasons: No Have you been hit, kicked, punched, or otherwise hurt by someone within the past year? 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 Cognitive needs: No Hearing needs: No Vision needs: No Meds Allergies Allergy/AdvReac Type Severity Reaction Status Date / Time No Known Allergies Allergy Verified 09/08/24 07:14 Exam Height,Weight and Vital Signs: Height 5 ft 5 in Weight 81.647 kg Assessment and Plan Assessment Anesthesia Assessment: Chart Reviewed Documented by User: Magi Munguia DO 09/08/24 08:20 HPI - Anesthesia Eval Anesthesia Pre-Procedure Meds Is the patient on any of the following meds?: GLP1/DPP4 PMFSH Past Medical History Medical History Hypothyroid Arthritis Diabetes GERD (gastroesophageal reflux disease) Sleep apnea HTN (hypertension) Family History Family History Father Hypertension Alcoholism Mother Acute CVA (cerebrovascular accident) Stroke Son In good health Daughter In good health Other Substance use disorder Family history of problems with anesthesia: No Surgical History Surgical History History of partial hysterectomy History of bunionectomy History of tubal ligation History of Problems with Anesthesia: No Social History Social History Housing: House Are you a primary care clinician to a significant other at home: No Do you presently have visiting nurse or other home services: No Alcohol intake: never Patient Tobacco Use Status: Never used Tobacco e-Cigarette/Vaping Use: Never Used Second Hand Smoke Exposure: No Use of substances other than those prescribed or required for medical reasons: No Have you been hit, kicked, punched, or otherwise hurt by someone within the past year? 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 Cognitive needs: No Hearing needs: No Vision needs: No Meds Allergies Allergy/AdvReac Type Severity Reaction Status Date / Time No Known Allergies Allergy Verified 09/08/24 07:14 Exam Exam Date and Time: 09/08/24 0818 Height,Weight and Vital Signs: Height 5 ft 5 in Weight 81.647 kg Vital Signs Temperature 97.1 F 09/08/24 07:22 Pulse Rate 80 09/08/24 07:22 Respiratory Rate 16 09/08/24 07:22 Blood Pressure 143/84 H 09/08/24 07:22 Pulse Oximetry 98 09/08/24 07:22 Oxygen Delivery Method Room Air 09/08/24 07:22 Temperature 97.1 F 09/08/24 07:22 Pulse Rate 80 09/08/24 07:22 Respiratory Rate 16 09/08/24 07:22 Blood Pressure 143/84 H 09/08/24 07:22 Pulse Oximetry 98 09/08/24 07:22 Oxygen Delivery Method Room Air 09/08/24 07:22 Airway Mallampati Class: II TM Dist: >3cm Neck ROM: Full Loose/Missing/Broken Teeth: No (braces in place) Heart: S1S2 Lungs: CTAB Assessment and Plan Assessment Anesthesia Assessment: Anesthesia Plan Discussed and Chart Reviewed Final Anesthetic Review Family History of Problems with Anesthesia: No History of Problems with Anesthesia: No NPO: Yes ASA Class: II Final Preanesthetic Review: No Changes in Pt Med Stat, Meds/Allgs Chart Reviewed, Consent Obtained/Reviewed and Anes Risks/Benef Reviewed Patient Risk: Low Procedure Risk: Low Anesthetic Plan Anesthetic Plan: MAC: and Agree w/ Assess. and Plan Disposition: Standard PACU
[2024-09-08 08:27] LABS: Glucose, Whole Blood 99 mg/dL (60-115)
--- NOTE | 2024-09-08 09:02 | P.OPN-COLO_ITS ---
Colonoscopy Operative Note Operative Note Date of Service: 09/08/24 Narrative: COLONOSCOPY TILL CECUM WITH BIOPSIES Pre-op diagnosis: Surveillance for colon polyps. Post-op diagnosis:? Colon polyps, Diverticulosis, hemorrhoids Endoscopist:? Jason Baxter MD Anesthesia:?MAC Consent: Indications for the procedure and potential complications of bleeding, perforation, reaction to medications and missed diagnosis were discussed with the patient and informed consent was obtained. Instrument: Olympus PCF H 190 L variable stiffness pediatric colonoscope Monitoring: Vital signs and clinical assessment, intermittent blood pressure monitoring, continuous EKG monitoring, Pulse oximetry and Carbon Dioxide monitoring were done throughout the procedure. Please see anesthesia flowsheet. Colon withdrawl time was 13 minutes. Procedure: The patient was placed in the left lateral decubitis position and pre-procedure medications were administered. After a digital rectal examination of the ano-rectum, the video colonoscope was inserted into the rectum and advanced through the colon to the cecum. The colonoscope was slowly withdrawn in a retrograde panoramic fashion and the colon mucosa was carefully examined including a retroflexed view of the rectum. Findings and interventions are described below. Procedure Difficulty: without difficulty Findings: Terminal Ileum: Not evaluated Cecum: Normal Ascending Colon: A 4-5 mm sessile polyp in the distal AC/hepatic flexure - removed with a cold biopsy Transverse Colon: Normal Descending Colon: Moderate diverticulosis Sigmoid Colon: Moderate diverticulosis Rectum: Normal Ano-rectum: Large non-bleeding internal hemorrhoids Colon preparation: Good after copious irrigation. [place] Bowel Preparation Scale Right colon; 2 Transverse colon: 2 Left colon; 2 (0 = Unprepared colon segment with mucosa not seen due to solid stool that cannot be cleared. 1 = Portion of mucosa of the colon segment seen, but other areas of the colon segment not well seen due to staining, residual stool and/or opaque liquid. 2 = Minor amount of residual staining, small fragments of stool and/or opaque liquid, but mucosa of colon segment seen well. 3 = Entire mucosa of colon segment seen well with no residual staining, small fragments of stool or opaque liquid) Impression and Post Procedure Diagnosis: Colonoscopy Findings: One small polyp was removed Moderate diverticulosis seen in the left colon Large hemorrhoids on retroflexed exam. Plan: I will send a letter with biopsy results Repeat Colonoscopy in 5 years if polyps are adenomatous and due to a history of adenomatous colon polyps Above findings were reviewed with the patient and relevant handouts were given and the discharge area.
[2024-09-08 09:04] VITALS: BP 129/72; PULSE 77; RESP 16; TEMP 36.1; O2SAT 97
[2024-09-08 09:20] VITALS: BP 132/82; PULSE 74; RESP 17; TEMP 36.3; O2SAT 97
== END 2024-09-08 09:56 | disposition home or self-care (01) ==
PROVIDERS: PCP Physician Assistant; Visit Provider Internal Medicine Gastroenterology
PROC: 0DJD8ZZ Inspection of Lower Intestinal Tract, Via Natural or Artificial Opening Endoscopic (ICD-10-PCS; CPT 45378; principal; 2024-09-08 08:30)
DX: Z12.11 Encounter for screening for malignant neoplasm of colon (principal); D12.3 Benign neoplasm of transverse colon; K57.30 Diverticulosis of large intestine without perforation or abscess without bleeding; K64.8 Other hemorrhoids; Z86.0101 Personal history of adenomatous and serrated colon polyps; E11.9 Type 2 diabetes mellitus without complications; I10 Essential (primary) hypertension; E78.5 Hyperlipidemia, unspecified; G47.33 Obstructive sleep apnea (adult) (pediatric); E03.9 Hypothyroidism, unspecified; K21.9 Gastro-esophageal reflux disease without esophagitis; Z79.84 Long term (current) use of oral hypoglycemic drugs; Z79.02 Long term (current) use of antithrombotics/antiplatelets; Z79.899 Other long term (current) drug therapy; Z90.711 Acquired absence of uterus with remaining cervical stump
CPT/HCPCS: 45380; 82947; 88305; J2003; J2704

== ENCOUNTER → 2024-09-08 06:59 | Outpatient (BNV) | payer OTHER, SELFPAY | PROVIDERS: PCP Physician Assistant; Visit Provider Internal Medicine Gastroenterology | DX: Z12.11 Encounter for screening for malignant neoplasm of colon (principal); Z86.0100 Personal history of colon polyps, unspecified; D12.3 Benign neoplasm of transverse colon; K57.90 Diverticulosis of intestine, part unspecified, without perforation or abscess without bleeding | CPT/HCPCS: 45380 ==

== ENCOUNTER 2024-12-04 11:08 | Outpatient (AMB) | payer OTHER, SELFPAY ==
--- NOTE | 2024-12-04 11:16 | MHC.PC.OV ---
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 Production Required: No Accompanied by: Self / Same As Patient Allergies No Known Allergies Allergy (Verified 12/04/24 11:40) Medication List - Last Reconciled 12/04/24 by Shantanu Leal PA-C blood sugar diagnostic (FreeStyle Lite Strips) Test once a day blood-glucose meter (FreeStyle [place] Lite kit) As directed cholecalciferol (vitamin D3) 50 mcg PO DAILY cyclobenzaprine 5 mg PO BEDTIME PRN lancets (FreeStyle Lancets) Test once a day lisinopril 10 mg PO DAILY naproxen 500 mg PO BID PRN omeprazole 40 mg PO DAILY 90 days semaglutide (Ozempic) 1 mg (0.75 mL) subcut QWEEK 4 weeks simvastatin 10 mg PO DAILY 90 days Tobacco use date assessed: 12/04/24 Dental Screening Dental Screen Date: 12/04/24 Did you have a dental visit in the last 12 months?: Yes Did you have a dental problem in the last 6 months where you did not have access to dental care?: No Was dental information given to patient?: Patient has dentist HPI f/u DMII/ HTN HPI Details .. Patient is a 59-year-old female here today for a follow-up visit.? Patient has a past medical history significant for hypothyroidism, osteoarthritis of the hip hyperlipidemia, impaired glucose metabolism, obesity. Concern-- > Patient concerned about Cutaneous concerns involve a long-standing keratotic lesion on her back, described as itchy on occasion, alongside a nevus. The lesions have not shown significant changes lately. Significant sun exposure in the past was reported, particularly during times spent in [place]. .. Obesity:? Has lost weight since last office visit, today's BMI 28 from 30.? She has been much more physically active. She does report some side effect from GLP 1 of constipation. .. Hyperlipidemia: Patient continues on simvastatin 40 mg without side effect. Continue to lipid panel to ensure an appropriate LDL below 100. .. Type 2 diabetes: Today's A1c of 5.3. Recent fasting blood sugar much improved. Continues on GLP 1 with good effect. She is also speaking with a children's librarian Has been holding her metformin. [facility] Medical History (Updated 12/04/24 @ 11:48 by Shantanu Leal PA-C) Hypothyroid Arthritis Diabetes GERD (gastroesophageal reflux disease) Sleep apnea HTN (hypertension) Surgical History History of partial hysterectomy History of bunionectomy History of tubal ligation Family History Father Hypertension Alcoholism Mother Acute CVA (cerebrovascular accident) Stroke Son In good health Daughter In good health Other Substance use disorder Social History Housing: House Are you a primary vp care management to a significant other at home: No Do you presently have visiting nurse or other home services: No Alcohol intake: never Patient Tobacco Use Status: Never used Tobacco e-Cigarette/Vaping Use: Never Used Second Hand Smoke Exposure: No service: No Current occupational status: employed 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 1. Little interest or pleasure in doing things: not at all 2. Feeling down, depressed, or hopeless: not at all 3. Trouble falling or staying asleep, or sleeping too much: not at all 4. Feeling tired or having little energy: not at all 5. Poor appetite or overeating: not at all 6. Feeling bad about yourself - or that you are a failure or have let yourself or your family down: not at all 7. Trouble concentrating on things, such as reading the newspaper or watching television: not at all 8. Moving or speaking so slowly that other people could have noticed. Or the opposite - being so fidgety or restless that you have been moving around a lot more than usual: not at all 9. Thoughts that you would be better off or of hurting yourself in some way: not at all Total score: 0 Depression Screening Interpretation: Negative Depression Screening Done: Yes 47401 - PHQ-9 Billing: Yes Source: Developed by Kathie Briceño Kurt Kroenke and colleagues, with an educational sonia from [employer]. Thrive Questionnaire Date Thrive assessed: 12/04/24 I am a: Patient What is your living situation today?: I have a steady place to live Within the past 12 months, did the food you bought not last and you didn't have the money to get more?: Never true Within the past 12 months, did you worry whether your food would run out before you got money to buy more?: Never true Do you have trouble paying for medicines?: No Do you have trouble getting transportation to medical appointments?: No Do you have trouble paying your heating and electricity bill?: No Do you have trouble taking care of your child, family member or friend?: No Do you have trouble with day-to-day activities such as bathing, preparing meals, shopping, managing finances, etc.?: No Are you currently unemployed and looking for a job?: No Are you interested in more education?: No Please select the resources that you would like help with: None Currently or been in a relationship where the following occur: No concerns reported THRIVE Score: 0 AUDIT C Alcohol Use Questionnaire (AUDIT-C) 1. How often do you have a drink containing alcohol?: Never 3. How often do you have six or more drinks on one occasion?: Never Total Score: 0 EJD-7 AMB Questionnaire JED-7 Date JED - 7 assessed: 12/04/24 Feeling nervous, anxious, or on edge: 0 = Not at all Not being able to stop or control worryin = Not at all Worrying too much about different things: 0 = Not at all Trouble relaxin = Not at all Being so restless that it is hard to sit still: 0 = Not at all Becoming easily annoyed or irritable: 0 = Not at all Feeling afraid as if something awful might happen: 0 = Not at all Total JED-7 score (0-4 normal; 5-9 mild; 10-14 moderate; 15-21 severe): 0 Source: Developed by Kathie Briceño Kurt Kroenke and colleagues, with an educational sonia from [employer]. JED-7 Assessment Billing JED-7 Assessment Tool: JED-7 Assessment 73682 Review of Systems Const Denies headache(s) Eyes Denies loss of vision ENT Denies vertigo, Denies dizziness, Denies headache(s) and Denies sore throat Card Denies chest pain, Denies leg edema and Denies lightheadedness Resp Denies cough, Denies hemoptysis and Denies wheezing GI Denies abdominal pain, Denies melena, Denies constipation, Denies diarrhea and Denies vomiting Denies urinary frequency, Denies dysuria and Denies urinary urgency Musc Denies arthralgias, Denies joint swelling, Denies numbness and Denies tingling Neuro Denies Abnormal speech present, Denies behavioral changes, Denies vertigo, Denies dizziness, Denies headache(s), Denies loss of vision, Denies memory loss, Denies numbness and Denies tingling Psych Denies anxiety, Denies behavioral changes, Denies depression, Denies memory loss and Denies panic attacks James/Lymph Denies easy bleeding and Denies easy bruising Aller/Immun Denies wheezing Physical exam (Primary Care) Vital Signs: Last Vital Signs Temp 96.9 F 12/04/24 11:23 Pulse 63 12/04/24 11:23 BP 146/80 H 12/04/24 11:23 Pulse Ox 100 12/04/24 11:23 Oxygen Delivery Method Room Air 12/04/24 11:23 Care Plan Goal for BP management: Continue current dose of antihypertensive medication with goal blood pressure to be below 140/90 Next steps: Will work on low-sodium diet and monitor blood pressure BMI result Body Mass Index 28.7 Tobacco/Smoking Status: Tobacco use Status Tobacco use date assessed 12/04/24 12/04/24 11:25 Patient Tobacco Use Status Never used Tobacco 12/04/24 11:16 e-Cigarette/Vaping Use Never Used 12/04/24 11:16 PHQ-9: PHQ-9 Score PHQ-9: Total score 0 12/04/24 11:41 Depression Screening Interpretation: Negative Thrive Assessment: Date of Thrive Assessment Date Thrive assessed 12/04/24 12/04/24 11:25 Currently or been in a relationship where the following occur: No concerns reported Const General: healthy appearing, no acute distress, alert and awake Nutritional Appearance: well nourished Orientation/consciousness: oriented to person, oriented to place and oriented to time HENMT Ears: TM's normal bilaterally General nose exam: Normal nasal mucous membranes and turbinates present Eyes Conjunctivae: conjunctivae normal Sclerae: sclerae normal Pupils: Equal, round and reactive pupils present Neck Neck: Yes no lymphadenopathy and Yes no JVD Thyroid: Thyroid normal Carotids: no bruits Resp Effort & Inspection: normal respiratory effort and not tachypneic Auscultation: no crackles, no rales, no rhonchi and no wheezes Cardio Rate: regular rate Rhythm: regular rhythm Heart sounds: no murmurs and normal S1 and S2 GI Palpation (GI): Soft to palpation, nontender, no hepatomegaly and no splenomegaly Auscultation: normal bowel sounds Skin General skin exam: no rashes or lesions noted and dry skin Neuro General: oriented to person, oriented to place and oriented to time Cranial nerves: Yes Equal, round and reactive pupils present Speech: No Abnormal speech present Gait exam (Neuro): Normal gait present Motor exam (neuro): no tremor noted Extrem Right upper extremity: full ROM Left upper extremity: full ROM Right lower extremity: full ROM; no edema Left lower extremity: full ROM; no edema Psych Mental Status: mental status grossly normal Speech and movement: Normal speech and movement present Affect: normal affect Attitude: cooperative Thought process: Normal thought process present Results AMB Hemoglobin A1c AMB Hemoglobin A1c 5.3 % Last Edit by CLARIBEL Lopez on 12/04/24 11:41 Results Reviewed Results Reviewed: Laboratory Last Values Hgb A1c (Clinic) 5.3 % (4.0-6.0) 12/04/24 11:41 Coding Level of Care Code Est Pt Level 4 (02920) Diagnoses Primary hypertension I10 Hypertension type: primary hypertension Type 2 diabetes mellitus with hyperglycemia, without long-term current use of insulin E11.65 Diabetes mellitus complication status: with hyperglycemia Diabetes mellitus fci insulin use: without termite control servicer use Mixed hyperlipidemia E78.2 Hyperlipidemia type: mixed hyperlipidemia Keratosis L57.0 Additional Codes JED-7 Assessment Billing - JED-7 Assessment Tool: JED-7 Assessment 13852 ([id number]) PHQ-9 - 34580 - PHQ-9 Billing: Yes ([id number]) Assessment & Plan Assessment & Plan (1) HTN (hypertension): Code(s): I10 - Essential (primary) hypertension Category: Medical Qualifiers: Hypertension type: primary hypertension Qualified Code(s): I10 - Essential (primary) hypertension Plan: Patient's blood pressure slightly elevated today in office, she attributes this to being a little stressed and angry today work. We have previously taken her off of hydrochlorothiazide. Will give paper Rx for blood pressure monitor to do blood pressure monitoring. Will consider increasing lisinopril dose to 20 mg. Has lost significant amount of weight and feeling much better. . Advised to continue monitoring pressure at home with goal blood pressure to remain below 140/90 and above 100/60. (2) DMII (diabetes mellitus, type 2): Code(s): E11.9 - Type 2 diabetes mellitus without complications Category: Medical Qualifiers: Diabetes mellitus complication status: with hyperglycemia Diabetes mellitus termite control servicer insulin use: without termite control servicer use Qualified Code(s): E11.65 - Type 2 diabetes mellitus with hyperglycemia Plan: Patient's type 2 diabetes now well controlled. Continues with Ozempic 1 mg weekly. Today's A1c of 5.3. She will continue Ozempic 1 mg weekly. Goal A1c is to remain below 6.5 (3) HLD (hyperlipidemia): Code(s): E78.5 - Hyperlipidemia, unspecified Category: Medical Qualifiers: Hyperlipidemia type: mixed hyperlipidemia Qualified Code(s): E78.2 - Mixed hyperlipidemia Plan: Patient's most recent lipid panel showing excellent control over total cholesterol and LDL. Has lost significant amount of weight since starting GLP 1. Will reduce her simvastatin dose to 10 mg and recheck lipid panel in 6 months. Goal LDL to remain below 100 (4) Keratosis: Code(s): L57.0 - Actinic keratosis Category: Medical Plan: Will supply patient with topical steroid ointment to place on skin lesion. Orders: Orders AMB Hemoglobin A1c Today E11.65 - Type 2 diabetes mellitus with hyperglycemia Medications: New triamcinolone acetonide 0.5% 1 appl topical DAILY 15 grams 0RF 30 days L57.0 - Actinic keratosis blood pressure monitor As directed 1 ea 0RF I10 - Essential (primary) hypertension Patient Instructions: Goal: Blood pressure to be below 140/90, A1c to remain below 6.5 Barriers: Adherence to physical activity and healthy eating habits
[2024-12-04 11:23] VITALS: BP 146/80; PULSE 63; TEMP 36.1; O2SAT 100; BMI 28.7
--- OUTSIDE RECORDS SUMMARY | 2024-12-04 13:21 | XMS_ITS | Patient Health Record ---
Author Organization [facility] [place] Address [address] [place] [address] Care Team Providers Care Certified Orthotist Practice Manager Name Role Phone Luis Reyes MD Primary Care Provider Melvin Noland Unavailable [phone] Reason For Referral No Information Medications Medication SIG (Take, Route, Fr equency, Duration) Notes Start Date End Date Status Physical Therapy . . .Dx: 4 weeks post bunion sx with internal screw fixation. Need to reduce edema and increase ROM, please use ES and massage 2-3x/week for 3-4 weeks 12/28/2013 Not-Taking Simvastatin 40 MG 1 tablet in the even ing Orally Once a day for 30 day(s) Active Work Note . .patient is recoveri ng from foot surgery with planned return to work on january 11, 2014 . . for . 12/28/2013 Not-Taking Social History Tobacco use other than smoking: Question Answer Notes Are you an other tobacco user? No Problems Problem Type SNOMED Code ICD Code Onset Dates Problem Status W/U Status Risk Notes Problem Acquired hammer toe of right foot ([id number] 105) Other hammer toe(s) (acquired), right foot (M20.41) Active confirmed Plan Of Treatment Pending Test Test Name Order Date X ray : Foot, left 2V 10/26/2012 X ray : Foot, right 2V 11/01/2013 X ray : Foot, right 2V 12/04/2013 X ray : Foot, right 2V 12/14/2013 X ray : Foot, right 2V 12/28/2013 X ray : Foot, right 2V 01/25/2014 X ray : Foot, right 2V 04/05/2014 X ray : Foot, right 2V 10/26/2012 X ray : Foot, right 3V 01/21/2017 Insurance Providers Payer Name Payer Address Payer Phone Subscriber Number Group Number Insured Name Patient Relationship to Insured Coverage Start Date Coverage End Date [facility] [address] [facility] [place] [id number] Christine Parra Self - patient is the insured Medical (General) History Medical History History ICD Code cholesterol chicken pox Surgical History Surgery Date(Month/Year) hysterectomy 11/2009 Bun right 11/30/2013
== END 2024-12-04 11:57 | disposition home or self-care (01) ==
LOC: HO.HMCH 11:09
PROVIDERS: PCP Physician Assistant; Visit Provider Physician Assistant
DX: I10 Essential (primary) hypertension (principal); E11.65 Type 2 diabetes mellitus with hyperglycemia; E78.2 Mixed hyperlipidemia; L57.0 Actinic keratosis

== ENCOUNTER → 2024-12-04 11:08 | Outpatient (BNVA) | payer OTHER, SELFPAY | PROVIDERS: PCP Physician Assistant; Visit Provider Physician Assistant | DX: I10 Essential (primary) hypertension (principal); E11.65 Type 2 diabetes mellitus with hyperglycemia; E78.2 Mixed hyperlipidemia; L57.0 Actinic keratosis; Z79.899 Other long term (current) drug therapy | CPT/HCPCS: 83036; 96127 ==

== ENCOUNTER 2024-12-28 08:09 | Outpatient (REF) | payer OTHER, SELFPAY ==
--- OUTSIDE RECORDS SUMMARY | 2024-12-28 08:21 | XMS_ITS | Patient Health Record ---
Author Organization [facility] [place] Address [address] [place] [address] Care Team Providers Care Lump Receiver Name Role Phone Luis Reyes MD Primary Care Provider Melvin Noland Unavailable [phone] Reason For Referral No Information Medications Medication [...] Problem Acquired hammer toe of right foot ([id number] 105) Other hammer toe(s) (acquired), right foot [...] Insured Coverage Start Date Coverage End Date [facility] [address] [facility] [place] [id number] Christine Parra Self - patient is the insured Medical (General) History Medical History History ICD Code cholesterol chicken pox Surgical History Surgery Date(Month/Year) hysterectomy 11/2009 Bun right 11/30/2013
== END 2024-12-28 08:10 | disposition home or self-care (01) ==
LOC: HO.MAMMO 08:09
PROVIDERS: PCP Physician Assistant; Visit Provider Physician Assistant
DX: Z12.31 Encounter for screening mammogram for malignant neoplasm of breast (principal)
CPT/HCPCS: 77063; 77067

== ENCOUNTER → 2024-12-28 08:15 | Outpatient (BNV) | payer OTHER, SELFPAY | PROVIDERS: PCP Physician Assistant; Visit Provider Internal Medicine | DX: Z12.31 Encounter for screening mammogram for malignant neoplasm of breast (principal) | CPT/HCPCS: 77063; 77067 ==

== ENCOUNTER 2025-04-18 08:34 | Outpatient (REF) | payer OTHER, SELFPAY ==
[2025-04-18 08:51] LABS: Hematocrit 36.6 % (37.0-47.0); Hemoglobin 12.0 g/dl (12.0-16.0); Mean Corpuscular HGB Conc 32.8 g/dl (31.0-35.0); Mean Corpuscular Hemoglobin 28.6 pg (27.0-33.0); Mean Corpuscular Volume 87.1 fL (80.0-98.0); NRBC Abs Auto 0.000 X10*3/uL (0.0-0.012); NRBC Pct Auto 0.0 /100WBC (0.0-0.2); Platelet Count 244 X10*3/uL (160-400); Red Blood Count 4.20 X10*6/uL (4.20-5.50); White Blood Count 6.7 X10*3/uL (4.8-10.8)
--- OUTSIDE RECORDS SUMMARY | 2025-04-18 09:16 | XMS_ITS | Patient Health Record ---
Author Organization [facility] [place] Address [address] [place] [address] Care Team Providers Care Quality Assurance Supervisor Final Name Role Phone Luis Reyes MD Primary Care Provider Melvin Noland Unavailable [phone] Reason For Referral No Information Medications Medication SIG (Take, Route, Fr equency, Duration) Notes Start Date End Date Status Physical Therapy . . .Dx: 4 weeks post bunion sx with internal screw fixation. Need to reduce edema and increase ROM, please use ES and massage 2-3x/week; Duration: 3-4 weeks 12/28/2013 Not-Taking Simvastatin 40 MG 1 tablet in the even ing Orally Once a day; Duration: 30 day(s) Active Work Note . .patient is recoveri ng from foot surgery with planned return to work on january 11, 2014 . .; Duration: . 12/28/2013 Not-Taking Social History Tobacco use other than smoking: Question Answer Notes Are you an other tobacco user? No Problems Problem Type SNOMED Code ICD Code Onset Dates Problem Status W/U Status Risk Notes Problem Acquired hammer toe of right foot ([id number] 105) Other hammer toe(s) (acquired), right foot [...] Insured Coverage Start Date Coverage End Date [facility] [address] [facility] [place] [id number] [phone] [id number] Christine Parra Self - patient is the insured Medical (General) History Medical History History ICD Code cholesterol chicken pox Surgical History Surgery Date(Month/Year) hysterectomy 11/2009 Bun right 11/30/2013
[2025-04-18 09:23] LABS: Alanine Aminotransferase 15 U/L (0-31); Albumin Level 4.4 g/dL (3.5-5.0); Alkaline Phosphatase 58 U/L (39-117); Anion Gap 9 (12-20); Aspartate Amino Transferase 25 U/L (5-31); Blood Urea Nitrogen 16 mg/dL (9-16); Calcium 9.5 mg/dL (8.4-10.2); Carbon Dioxide 28 mmol/L (22-29); Chloride 110 mmol/L (96-108); Cholesterol 176 mg/dL (<200); Estimated Glomerular Filt Rate > 60; HDL Cholesterol 57 mg/dL (>40); Potassium 4.3 mmol/L (3.3-5.1); Sodium 143 mmol/L (135-145); Total Protein 7.1 g/dL (6.5-8.0); Triglycerides 80 mg/dL (<150)
[2025-04-18 10:37] LABS: Microalbum/Creatinine Ratio Ur 5.1 ug/mg cr (<30)
== END 2025-04-18 08:35 | disposition home or self-care (01) ==
LOC: HO.LAB 08:34
PROVIDERS: PCP Physician Assistant; Visit Provider Physician Assistant
DX: E11.65 Type 2 diabetes mellitus with hyperglycemia (principal); E78.2 Mixed hyperlipidemia; R79.89 Other specified abnormal findings of blood chemistry; E03.9 Hypothyroidism, unspecified
CPT/HCPCS: 36415; 80053; 80061; 82043; 82306; 82570; 84443; 85027

== ENCOUNTER 2025-06-27 10:14 | Outpatient (AMB) | payer OTHER, SELFPAY ==
--- NOTE | 2025-06-27 10:23 | MHC.PC.OV ---
Vital Signs 06/27/25 10:24 Height 5 ft 5 in Weight 170 lb 6 oz BMI 28.3 BP 130/60 Blood Pressure Location Lt brachial Position Sitting Pulse 83 Pulse Source Pulse Oximeter Temp 97.1 F Temp Source Temporal Artery Scan Pulse Oximetry (%) 99 Oxygen Delivery Method Room Air Intake Visit Reasons: pe Intake Note: Patient is here today for a physical. 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 per policy Accompanied by: Self / Same As Patient Allergies No Known Allergies Allergy (Verified 06/27/25 11:03) Medication List - Last Reconciled 06/27/25 by Shantanu Leal PA-C blood pressure monitor As directed blood sugar diagnostic (FreeStyle Lite Strips) Test once a day blood-glucose meter (FreeStyle [place] Lite kit) As directed cholecalciferol (vitamin D3) 50 mcg PO DAILY cyclobenzaprine 5 mg PO BEDTIME PRN lancets (FreeStyle Lancets) Test once a day lisinopril 10 mg PO DAILY naproxen 500 mg PO BID PRN omeprazole 40 mg PO DAILY 90 days semaglutide (Ozempic) 2 mg (0.75 mL) subcut QWEEK 4 weeks simvastatin 10 mg PO DAILY 90 days triamcinolone acetonide 0.5% 1 appl topical DAILY 30 days Tobacco use date assessed: 06/27/25 Dental Screening Dental Screen Date: 12/04/24 HPI pe HPI Details Patient is a 59-year-old female here today for a routine annual physical.? Patient has a past medical history significant for hypothyroidism, osteoarthritis of the hip hyperlipidemia, impaired glucose metabolism, obesity. Concern-- > patient reports having incidence of sharp neck pain that radiates into her head. She reports it is not very often though she is concerned. Also has to skin lesions over her left ear she would like removed. .. Overweight:? Has lost weight since last office visit, today's BMI 28 from 30.? She has been much more physically active. She does report some side effect from GLP 1 of constipation. .. Hyperlipidemia: Patient continues on simvastatin 40 mg without side effect. Continue to lipid panel to ensure an appropriate LDL below 100. .. Type 2 diabetes: Most recent A1c at 5.4. She continues on Ozempic 2 mg weekly. She continues to maintain weight loss. Recent fasting blood sugar much improved. . Vaccine: UTD with Tdap , UTD with COVID, DEclines flu vaccine, need Shingrex . Colon: Done in 2024 - repeat 5 years- . Mammogram: 12/2024- [facility] 1-- Laboratory Tests 11/11/23 05/26/24 09/08/24 07:29 09:47 07:45 RBC Hgb 12.5 POC Glucose 99 Fasting Glucose 134 H 95 Hgb A1c (Clinic) Cholesterol 161 147 HDL Cholesterol 25-OH Vitamin D To charu Urine Microalbumin 04/18/25 04/18/25 06/27/25 08:39 08:41 10:23 RBC 4.20 Hgb POC Glucose Fasting Glucose 89 Hgb A1c (Clinic) 5.4 Cholesterol 176 HDL Cholesterol 57 25-OH Vitamin D To charu 25.5 L Urine Microalbumin 11.0 PFSH Medical History Hypothyroid Arthritis Diabetes GERD (gastroesophageal reflux disease) Sleep apnea HTN (hypertension) Surgical History History of partial hysterectomy History of bunionectomy History of tubal ligation Family History Father Hypertension Alcoholism Mother Acute CVA (cerebrovascular accident) Stroke Son In good health Daughter In good health Other Substance use disorder Social History Housing: House Are you a primary client care specialist to a significant other at home: No Do you presently have visiting nurse or other home services: No Alcohol intake: never Patient Tobacco Use Status: Never used Tobacco e-Cigarette/Vaping Use: Never Used Second Hand Smoke Exposure: No service: No Current occupational status: employed 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 1. Little interest or pleasure in doing things: not at all 2. Feeling down, depressed, or hopeless: not at all 3. Trouble falling or staying asleep, or sleeping too much: several days 4. Feeling tired or having little energy: not at all 5. Poor appetite or overeating: not at all 6. Feeling bad about yourself - or that you are a failure or have let yourself or your family down: not at all 7. Trouble concentrating on things, such as reading the newspaper or watching television: not at all 8. Moving or speaking so slowly that other people could have noticed. Or the opposite - being so fidgety or restless that you have been moving around a lot more than usual: not at all 9. Thoughts that you would be better off or of hurting yourself in some way: not at all Total score: 1 Depression Screening Interpretation: Positive Depression Screening Done: Yes Source: Developed by Drs. Marc Taylor, Kathie Patel, Rogelio Mercado and colleagues, with an educational sonia from [employer]. Thrive Questionnaire Date Thrive assessed: 06/20/25 I am a: Patient What is your living situation today?: I have a steady place to live Within the past 12 months, did the food you bought not last and you didn't have the money to get more?: Sometimes True Within the past 12 months, did you worry whether your food would run out before you got money to buy more?: Sometimes True Do you have trouble paying for medicines?: No Do you have trouble getting transportation to medical appointments?: No Do you have trouble paying your heating and electricity bill?: No Do you have trouble taking care of your child, family member or friend?: No Do you have trouble with day-to-day activities such as bathing, preparing meals, shopping, managing finances, etc.?: No Are you currently unemployed and looking for a job?: No Are you interested in more education?: No Please select the resources that you would like help with: None Currently or been in a relationship where the following occur: No concerns reported THRIVE Score: 2 AUDIT C Alcohol Use Questionnaire (AUDIT-C) 1. How often do you have a drink containing alcohol?: Never Total Score: 0 JED-7 AMB Questionnaire JED-7 Date JED - 7 assessed: 12/04/24 Feeling nervous, anxious, or on edge: 0 = Not at all Not being able to stop or control worryin = Not at all Worrying too much about different things: 1 = Several days Trouble relaxin = Not at all Being so restless that it is hard to sit still: 0 = Not at all Becoming easily annoyed or irritable: 0 = Not at all Feeling afraid as if something awful might happen: 0 = Not at all Total JED-7 score (0-4 normal; 5-9 mild; 10-14 moderate; 15-21 severe): 1 Source: Developed by Drs. Marc Taylor, Kathie Patel, Rogelio Mercado and colleagues, with an educational sonia from [employer]. Review of Systems Const Denies body aches, Denies chills, Denies excessive sweating, Denies fatigue, Denies fever(s) and Denies headache(s) Eyes Denies blurry vision ENT Denies dysphagia, Denies vertigo, Denies dizziness, Denies headache(s), Denies hearing loss and Denies tinnitus Card Denies chest pain, Denies chest pain with activity, Denies syncope, Denies irregular heart rhythm and Denies dyspnea Resp Denies chest congestion, Denies cough, Denies hemoptysis, Denies dyspnea and Denies wheezing GI Denies abdominal pain, Denies melena, Denies hematochezia, Denies coffee ground emesis, Denies dysphagia, Denies diarrhea, Denies nausea and Denies vomiting Denies urinary frequency, Denies dysuria, Denies urinary hesitancy and Denies urinary urgency Musc Denies arthralgias, Denies limited range of motion, Denies muscle cramps and Denies muscle weakness Skin/Breast Denies rash and Denies skin ulcer Neuro Denies Abnormal speech present, Denies confusion, Denies vertigo, Denies dizziness, Denies syncope, Denies headache(s), Denies memory loss and Denies seizure-like activity Psych Denies anxiety, Denies confusion, Denies depression, Denies memory loss, Denies panic attacks and Denies paranoia Endo Denies excessive sweating, Denies fatigue, Denies flushing, Denies polydipsia and Denies polyuria Aller/Immun Denies wheezing Physical exam (Primary Care) Vital Signs: Last Vital Signs Temp 97.1 F 06/27/25 10:24 Pulse 83 06/27/25 10:24 BP 130/60 06/27/25 10:24 Pulse Ox 99 06/27/25 10:24 Oxygen Delivery Method Room Air 06/27/25 10:24 BMI result Body Mass Index 28.3 Tobacco/Smoking Status: Tobacco use Status Tobacco use date assessed 06/27/25 06/27/25 10:32 Patient Tobacco Use Status Never used Tobacco 06/27/25 10:32 e-Cigarette/Vaping Use Never Used 06/27/25 10:32 PHQ-9: PHQ-9 Score PHQ-9: Total score 1 06/27/25 11:05 Depression Screening Interpretation: Positive Thrive Assessment: Date of Thrive Assessment Date Thrive assessed 06/20/25 06/27/25 10:32 Currently or been in a relationship where the following occur: No concerns reported Const General: cooperative, comfortable, no acute distress, alert and awake; No confusion Orientation/consciousness: oriented to person, oriented to place, patient oriented x3 and No confusion HENMT Head: Yes normocephalic Ears: external ears normal and TM's normal bilaterally Face and sinus: No sinus tenderness Mouth: Normal oral and palatal mucosa present and tongue normal Teeth and gingiva: dentition normal and gingiva normal Throat: Yes posterior oropharynx normal, Yes tonsils normal and Yes uvula midline Eyes Conjunctivae: conjunctivae normal Sclerae: sclerae normal Pupils: Equal, round and reactive pupils present EOM: EOMs intact bilaterally Direct Ophthalmoscopy: No no photophobia Neck Neck: Yes no lymphadenopathy, No tender and Yes no JVD Thyroid: Thyroid normal Carotids: no bruits Chest Chest palpation & inspection: no tenderness Resp Effort & Inspection: normal respiratory effort, no audible wheezes, not labored and no stridor Auscultation: no crackles, no rales, no rhonchi and no wheezes Cardio Jugular venous distension: no JVD Rate: regular rate, not bradycardic and not tachycardic Rhythm: regular rhythm Bruits: no carotid bruits Peripheral pulses: Peripheral pulses 2+ throughout GI Inspection: Yes normal to inspection, No abdominal wall ecchymosis and No visible herniation Palpation (GI): Soft to palpation, nontender, no guarding, not rigid and No hepatosplenomegaly present Auscultation: normoactive bowel sounds General: Yes no CVA tenderness Back/Spine/Pelvis Back: no CVA tenderness and No back tenderness Cervical Spine: cervical ROM normal Thoracic/Lumbar Spine: thoracic and lumbar spine normal to inspection, straight leg raise negative bilaterally, No thoraco-lumbar ROM limited and No lumbar spinal tenderness Skin Lesions: no lesions Rashes: no rashes Wounds: no wounds Neuro General: oriented to person, oriented to place, patient oriented x3, CN's II-XI intact bilaterally and No confusion Cranial nerves: Yes Equal, round and reactive pupils present and Yes Normal accommodation reflex present Cognition (Neuro): normal cognition Speech: No Abnormal speech present Gait exam (Neuro): Normal gait present Motor exam (neuro): 5/5 motor strength present throughout Extrem Right upper extremity: full ROM; no cyanosis Left upper extremity: full ROM; no cyanosis Right lower extremity: no edema Left lower extremity: no edema Psych Appearance: grossly normal Mental Status: mental status grossly normal Affect: normal affect Attitude: cooperative Thought process: Normal thought process present Results AMB Hemoglobin A1c AMB Hemoglobin A1c 5.4 % Last Edit by WEN Lang on 06/27/25 10:37 Results Reviewed Results Reviewed: Laboratory Last Values Hgb A1c (Clinic) 5.4 % (4.0-6.0) 06/27/25 10:23 Coding Level of Care Code Est Pt Prev Care 40-64y(64060) Diagnoses Annual physical exam Z00.00 Radiculopathy of cervical spine M54.12 Lesion of left pinna H61.102 Primary hypertension I10 Hypertension type: primary hypertension Type 2 diabetes mellitus with hyperglycemia, without long-term current use of insulin E11.65 Diabetes mellitus complication status: with hyperglycemia Diabetes mellitus fpc insulin use: without fpc use Mixed hyperlipidemia E78.2 Hyperlipidemia type: mixed hyperlipidemia Assessment & Plan Assessment & Plan (1) Annual physical exam: Code(s): Z00.00 - Encounter for general adult medical examination without abnormal findings Category: Medical Plan: As per HPI (2) Radiculopathy of cervical spine: Code(s): M54.12 - Radiculopathy, cervical region Category: Medical Plan: Regarding the patient's neck pain, an X-ray of the cervical spine will be ordered to assess for arthritis or other issues (3) Lesion of left pinna: Code(s): H61.102 - Unspecified noninfective disorders of pinna, left ear Category: Medical Plan: For the lesion on the patient's left ear, a referral will be placed to a general surgeon for evaluation and possible removal. If the general surgeon is unable to perform the procedure, a referral to an ENT specialist will be necessary. (4) HTN (hypertension): Code(s): I10 - Essential (primary) hypertension Category: Medical Qualifiers: Hypertension type: primary hypertension Qualified Code(s): I10 - Essential (primary) hypertension Plan: Patient's blood pressure acceptable today in office. Will continue her current dose of lisinopril 10 mg. . Advised to continue monitoring pressure at home with goal blood pressure to remain below 140/90 and above 100/60. (5) DMII (diabetes mellitus, type 2): Code(s): E11.9 - Type 2 diabetes mellitus without complications Category: Medical Qualifiers: Diabetes mellitus complication status: with hyperglycemia Diabetes mellitus fpc insulin use: without fpc use Qualified Code(s): E11.65 - Type 2 diabetes mellitus with hyperglycemia Plan: Patient's type 2 diabetes now well controlled. Continues with Ozempic 1 mg weekly. Today's A1c of 5.3. She will continue Ozempic 2mg weekly. Goal A1c is to remain below 6.5 (6) HLD (hyperlipidemia): Code(s): E78.5 - Hyperlipidemia, unspecified Category: Medical Qualifiers: Hyperlipidemia type: mixed hyperlipidemia Qualified Code(s): E78.2 - Mixed hyperlipidemia Plan: Patient's most recent lipid panel showing excellent control over total cholesterol and LDL. Has lost significant amount of weight since starting GLP 1. Will reduce her simvastatin dose to 10 mg and recheck lipid panel in 6 months. Goal LDL to remain below 100 Orders: Orders AMB Hemoglobin A1c Today E11.65 - Type 2 diabetes mellitus with hyperglycemia Microalbumin, Random (w Creat) Today I10 - Essential (primary) hypertension TSH reflex Free T4 Today E03.9 - Hypothyroidism, unspecified Comprehensive [place]. Panel Fast Today I10 - Essential (primary) hypertension Complete Blood Count no Diff Today I10 - Essential (primary) hypertension Hemoglobin A1c Today E11.65 - Type 2 diabetes mellitus with hyperglycemia XR cervical spine 4V Today M54.12 - Radiculopathy, cervical region Referrals General Surgery Referral H61.102 - Unspecified noninfective disorders of pinna, left ear Patient Instructions: Goal: A1c to remain below 6.5, LDL to be below 100, Barriers: Adherence to physical activity and healthy eating habits
[2025-06-27 10:24] VITALS: BP 130/60; PULSE 83; TEMP 36.2; O2SAT 99; BMI 28.3
--- OUTSIDE RECORDS SUMMARY | 2025-06-27 12:43 | XMS_ITS | Patient Health Record ---
[facility] Address [address] [place] [address] Care Team Providers Care Utilization Review Coordinator Name Role Phone Luis Reyes MD Primary Care Provider Melvin Felton Unavailable [phone] Reason For Referral No Information Medications Medication [...] Problem Acquired hammer toe of right foot ([id number]) Other hammer toe(s) (acquired), right foot [...] Insured Coverage Start Date Coverage End Date [facility] [address] [place], [place] [address] [phone] [id number] Christine Parra Self - patient is the insured Medical (General) History Medical History History ICD Code cholesterol chicken pox Surgical History Surgery Date(Month/Year) hysterectomy 11/2009 Bun right 11/30/2013
== END 2025-06-27 11:18 | disposition home or self-care (01) ==
LOC: HO.HMCH 10:15
PROVIDERS: PCP Physician Assistant; Visit Provider Physician Assistant
DX: Z00.00 Encounter for general adult medical examination without abnormal findings (principal); E11.65 Type 2 diabetes mellitus with hyperglycemia; M54.12 Radiculopathy, cervical region; H61.102 Unspecified noninfective disorders of pinna, left ear; I10 Essential (primary) hypertension; E78.2 Mixed hyperlipidemia

== ENCOUNTER → 2025-06-27 10:14 | Outpatient (BNVA) | payer OTHER, SELFPAY | PROVIDERS: PCP Physician Assistant; Visit Provider Physician Assistant | DX: Z00.00 Encounter for general adult medical examination without abnormal findings (principal); E66.3 Overweight; E11.9 Type 2 diabetes mellitus without complications; M54.12 Radiculopathy, cervical region; H61.102 Unspecified noninfective disorders of pinna, left ear; I10 Essential (primary) hypertension; E11.65 Type 2 diabetes mellitus with hyperglycemia; E78.2 Mixed hyperlipidemia; E03.9 Hypothyroidism, unspecified; Z68.28 Body mass index [BMI] 28.0-28.9, adult | CPT/HCPCS: 83036; 96127 ==

== ENCOUNTER 2025-07-17 10:23 | Outpatient (AMB) | payer OTHER, SELFPAY ==
--- NOTE | 2025-07-17 10:25 | A.OFFVIS_ITS ---
Vital Signs 3 07/17/25 10:30 Height 5 ft 5 in Weight 172 lb BMI 28.6 BP 163/78 H Blood Pressure Location Rt brachial Position Sitting Pulse 86 Intake Visit Reasons: Unspecified noninfective disorders of pinna, left Intake Note: Patient referred by PCP García Leal PA-C for evaluation of a lesion on Lt ear. Present for many yrs. Patient c/o: enlarging. Not bothersome. Denies pain, itch. 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 Required: No Accompanied by: Self / Same As Patient Allergies No Known Allergies Allergy (Verified 07/17/25 10:31) Medication List - Last Reconciled 07/17/25 by Rolando Carias MD blood pressure monitor As directed blood sugar diagnostic (FreeStyle Lite Strips) Test once a day blood-glucose meter (FreeStyle [place] Lite kit) As directed cholecalciferol (vitamin D3) 50 mcg PO DAILY cyclobenzaprine 5 mg PO BEDTIME PRN lancets (FreeStyle Lancets) Test once a day lisinopril 10 mg PO DAILY naproxen 500 mg PO BID PRN omeprazole 40 mg PO DAILY 90 days semaglutide (Ozempic) 2 mg (0.75 mL) subcut QWEEK 4 weeks simvastatin 10 mg PO DAILY 90 days triamcinolone acetonide 0.5% 1 appl topical DAILY 30 days Do you need a note to return to daycare/school/sports/work: No HPI Comments Details: The patient is a 59-year-old female presenting with concerns about growths on her left ear. The growths have been present for several years but have recently increased in size. They are located on the left ear, with one on the front and one on the back, and do not cause pain. The patient expressed a desire to have the growths removed due to cosmetic concerns, as she is tired of seeing them. The growths are suspected to be keratosis' , and the patient has been informed about the possibility of excisional biopsy as a treatment option. [facility] Medical History Hypothyroid Arthritis Diabetes GERD (gastroesophageal reflux disease) Sleep apnea HTN (hypertension) Surgical History History of partial hysterectomy History of bunionectomy History of tubal ligation Family History Father Hypertension Alcoholism Mother Acute CVA (cerebrovascular accident) Stroke Son In good health Daughter In good health Other Substance use disorder Social History Housing: House Are you a primary skin care instructor to a significant other at home: No Do you presently have visiting nurse or other home services: No Alcohol intake: never Patient Tobacco Use Status: Never used Tobacco e-Cigarette/Vaping Use: Never Used Second Hand Smoke Exposure: No service: No Current occupational status: employed 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 0.5cm mobile soft tissue mass x 2 (mid helix and posterior) Eyes Pupils: Equal, round and reactive pupils present EOM: EOMs intact bilaterally Neck Neck: Yes normal visual inspection Resp Effort & Inspection: normal respiratory effort and able to speak in complete sentences Neuro General: oriented to person, oriented to place, oriented to time and CN's II-XI intact bilaterally Cranial nerves: Yes Equal, round and reactive pupils present Extrem General: Yes normal to inspection Assessment & Plan Assessment & Plan (1) Seborrheic keratoses: Code(s): L82.1 - Other seborrheic keratosis Category: Medical Plan: The patient has growths on the left ear suspected to be keratoses. An excisional biopsy has been proposed for removal, which will also serve a diagnostic purpose by allowing histopathological examination. The patient was informed about the procedure, including the risks of bleeding, infection, and the possibility of recurrence. The patient expressed interest in proceeding with the procedure due to cosmetic concerns. Coding Level of Care Code New Pt Level 3 (66122) Diagnoses Seborrheic keratoses L82.1 Time Spent (min) 30 Comment Time spent was direct contact time with the patient as well as record review.
[2025-07-17 10:30] VITALS: BP 163/78; PULSE 86; BMI 28.6
== END 2025-07-17 10:40 | disposition home or self-care (01) ==
LOC: HO.HGS 10:24
PROVIDERS: PCP Physician Assistant; Visit Provider Surgery
DX: L82.1 Other seborrheic keratosis (principal)
CPT/HCPCS: 99203

== ENCOUNTER 2025-07-17 10:23 | Outpatient (REF) | payer OTHER, SELFPAY ==
--- NOTE | ~2025-07-17 | XR_ITS ---
EXAMINATION: XR CERVICAL SPINE CLINICAL INFORMATION: M54.12 - Radiculopathy, cervical region COMPARISON: None available. TECHNIQUE: AP oblique lateral and atlantoodontoid views. FINDINGS: Metallic braces overlapping the atlantoodontoid view. Craniocervical junction is intact. Mild endplate irregularity at C5-6 and C6-7. No acute cortical disruption or malalignment. No lytic or blastic lesions. Right neuroforamina narrowing at C5-6 likely secondary to posterior marginal osteophyte formation. 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 Electronically signed by: Ruben Burton MD 07/17/2025 11:34 AM ANOOP
== END 2025-07-17 10:24 | disposition home or self-care (01) ==
LOC: HO.XRAY 10:23
PROVIDERS: Absent Provider Physician Assistant; PCP Physician Assistant; Visit Provider Surgery
DX: L82.1 Other seborrheic keratosis (principal); M54.12 Radiculopathy, cervical region
CPT/HCPCS: 72050

== ENCOUNTER → 2025-07-17 11:09 | Outpatient (BNV) | payer OTHER, SELFPAY | PROVIDERS: Absent Provider Physician Assistant; PCP Physician Assistant; Visit Provider Radiology Diagnostic Radiology | DX: M54.12 Radiculopathy, cervical region (principal); M47.812 Spondylosis without myelopathy or radiculopathy, cervical region | CPT/HCPCS: 72050 ==

== ENCOUNTER 2025-08-03 12:19 | Outpatient (REF) | payer OTHER, SELFPAY ==
[2025-08-03 13:29] VITALS: BP 178/81; PULSE 78; RESP 19; TEMP 36.2; O2SAT 99; BMI 28.3
--- NOTE | 2025-08-03 14:03 | W.PM.OPN ---
Operative Note Operative Note Date of Service: 08/03/25 Narrative: preoperative diagnosis: hypertrophic dermal papillae of the left ear x2 postoperative diagnosis: same procedure performed: Excision of hypertrophic dermal papillae of the left ear x2 specimen hypertrophic dermal papillae of the left ear x2 surgeon: Rolando Carias MD the patient is identified and brought to the minor procedure suite. her left ear was then prepped and draped in a standard sterile fashion. Approximately 10 cc of Marcaine with epinephrine were infused in skin and soft tissue on the greater mid curvecurve of the helix. Once appropriate local anesthetic was reached 15. Blade was used to excise to hypertrophic dermal papilla x2 involving the skin of the greater mid curvature of the left helix. They were approximately 1 cm diameter and then a 0.5 cm diameter. They were passed off table as specimen. Hemostasis was achieved with direct pressure as all silver nitrate application. A sterile occlusive dressing was then applied. The patient tolerated procedure well, was given instructions with regard to continuing care. She indicated that she understood and also indicated that she was happy to proceed with the plan as it was outlined to her.
== END 2025-08-03 12:20 | disposition home or self-care (01) ==
LOC: HO.MS 12:19
PROVIDERS: Visit Provider Surgery
PROC: (CPT 11440; principal; 2025-08-03 14:00)
DX: L82.1 Other seborrheic keratosis (principal)
CPT/HCPCS: 11440; 11441; 88304; 88305; J2004

== ENCOUNTER → 2025-08-03 12:19 | Outpatient (BNV) | payer OTHER, SELFPAY | PROVIDERS: Visit Provider Surgery | DX: L82.1 Other seborrheic keratosis (principal) | CPT/HCPCS: 11440; 11441 ==

== ENCOUNTER 2025-08-14 12:58 | Outpatient (AMB) | payer OTHER, SELFPAY ==
--- NOTE | 2025-08-14 13:00 | A.OFFVIS_ITS ---
Vital Signs 3 08/14/25 13:01 Height 5 ft 5 in Weight 170 lb 0.01 oz BMI 28.3 Intake Visit Reasons: S/P excision Lt ear keratosis x2 Intake Note: Patient presents for a follow-up assessment status post Excision of hypertrophic dermal papillae of the left ear x2 specimen hypertrophic dermal papillae of the left ear x2. Pt c/o; no complaints. Set Designer Required: No Accompanied by: Self / Same As Patient Allergies No Known Allergies Allergy (Verified 08/14/25 13:01) HPI HPI S/P excision Lt ear keratosis x2: Details: Doing well, denies pain unless she scratches or bumps it. Denies any drainage. She has no concerns [facility] Medical History Hypothyroid Arthritis Diabetes GERD (gastroesophageal reflux disease) Sleep apnea HTN (hypertension) Surgical History (Updated 08/14/25 @ 13:11 by Silvano Tian PA-C) Hx of surgical procedure (~08/07/25) History of partial hysterectomy History of bunionectomy History of tubal ligation Family History Father Hypertension Alcoholism Mother Acute CVA (cerebrovascular accident) Stroke Son In good health Daughter In good health Other Substance use disorder Social History Housing: House Are you a primary care advocate to a significant other at home: No Do you presently have visiting nurse or other home services: No Alcohol intake: never Patient Tobacco Use Status: Never used Tobacco e-Cigarette/Vaping Use: Never Used Second Hand Smoke Exposure: No service: No Current occupational status: employed 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 Excision site: Small 1 cm scab from excision site no drainage, no erythema, nontender Neuro General: patient oriented x3 Assessment & Plan Assessment & Plan (1) Hx of surgical procedure: Onset Date: ~08/07/25 Comment: Excision of hypertrophic dermal papillae of the left ear x2 specimen hypertrophic dermal papillae of the left ear x2- Dr. Aretha KHAN Code(s): Z98.890 - Other specified postprocedural states Category: Surgical Plan 60 year old female s/p excision of hypertrophic dermal papillae of the left ear returning to the office for wound check. She has no concerns, denies pain unless areas scratched. Denies any drainage or bleeding. Denies fevers or chills. Unexamined appears to be healing well, there was a 1 cm scab at the excision site. There was no concern for infection. Reviewed pathology showing dermal in compound nevi. No longer requiring follow up, can follow up as needed with any concerns in the future Coding Level of Care Code Est Pt Level 3 (36628) Diagnoses Hx of surgical procedure Z98.890
[2025-08-14 13:01] VITALS: BMI 28.3
--- OUTSIDE RECORDS SUMMARY | 2025-08-14 16:52 | XMS_ITS | Patient Health Record ---
[facility] [place] Address [address] [place] [address] Care Team Providers Care Supervisor [employer] Name Role Phone Luis Reyes MD Primary Care Provider Melvin Felton Unavailable [phone] Reason For Referral No Information Medications Medication [...] Problem Acquired hammer toe of right foot ([id number]) Other hammer toe(s) (acquired), right foot [...] Insured Coverage Start Date Coverage End Date [facility] [address] [place], [place] [address] [id number] Christine Parra Self - patient is the insured Medical (General) History Medical History History ICD Code cholesterol chicken pox Surgical History Surgery Date(Month/Year) hysterectomy 11/2009 Bun right 11/30/2013
== END 2025-08-14 13:16 | disposition home or self-care (01) ==
LOC: HO.HGS 12:59
PROVIDERS: PCP Physician Assistant
DX: Z98.890 Other specified postprocedural states (principal)
CPT/HCPCS: 99213

== ENCOUNTER 2025-08-14 14:02 | Outpatient (AMB) | payer OTHER, SELFPAY ==
--- NOTE | 2025-08-14 14:05 | A.OFFVIS_ITS ---
Vital Signs 08/14/25 14:07 Height 5 ft 5 in Weight 170 lb BMI 28.3 BP 131/78 Blood Pressure Location Rt brachial Position Sitting Pulse 86 Pulse Source Pulse Oximeter Pulse Oximetry (%) 98 Oxygen Delivery Method Room Air Intake Visit Reasons: Radiculopathy, cervical region Allergies No Known Allergies Allergy (Verified 08/14/25 14:07) HPI Comments Details: The patient is a 60 year old female presenting for an initial evaluation of chronic neck pain. She reports a long-standing history of neck pain, which she previously attributed to stress and did not seek care for. The pain is described as constant, sharp, and shooting, radiating to both shoulders and sometimes down to the elbow. Associated symptoms include headaches on the right side, described as sharp and stabbing, and occasional nausea when the pain is severe. She also reports feeling dizzy, lightheaded, and imbalanced, which she feels is related to her head. The pain is exacerbated by movement, especially looking down, and is alleviated by relaxing and lying down. A cervical spine X-ray last month revealed spondylosis at C5-C6 and C6-C7, bone spurs, and likely right neuroforaminal narrowing at C5-C6. The patient has not tried any szij-fsg-djijbgb medications, topical agents, home care music therapist, or acupuncture for her neck pain, stating she prefers to avoid pills if she can tolerate the pain. She finds that hot showers help her relax. Her past medical history includes bilateral hip pain and use of Ozempic, which causes constipation. She has no history of neck or back surgery, cancer, or any implantable devices. Her last A1c was 5.4. Pain Description - Onset/Timing: The pain is chronic and constant. - Quality/Character: The pain is described as sharp and shooting, and sometimes like a stabbing sensation. - Location: The primary location of pain is the neck. - Radiation: Pain radiates to both shoulders, sometimes down to the elbow, and into the right side of the head. - Exacerbating Factors: Pain increases with movement, particularly looking down, and she experiences tightness when looking to the left. - Relieving Factors: Pain improves with rest and lying down. - Associated Symptoms: She reports occasional nausea and headaches when the pain is severe. Pain Management - Affect: The patient initially attributed her chronic neck pain to stress. - Analgesia: The patient has not tried any jnhp-mda-ctupwaq pain medications or topical agents and manages her pain by resting and relaxing. - Activities of Daily Living: Severe pain can cause nausea and headaches, requiring her to lie down. - Aberrant Drug Related Behaviors: The patient states she does not like to take pills unless she cannot handle the pain, and there are no signs of aberrant behavior. Oswestry Neck Pain Disability Score=8 [facility] Medical History (Updated 08/14/25 @ 14:38 by SONYA Hinds) Hypothyroid Arthritis Diabetes GERD (gastroesophageal reflux disease) Sleep apnea HTN (hypertension) Surgical History (Updated 08/14/25 @ 13:11 by Silvano Tian PA-C) Hx of surgical procedure (~08/07/25) History of partial hysterectomy History of bunionectomy History of tubal ligation Family History Father Hypertension Alcoholism Mother Acute CVA (cerebrovascular accident) Stroke Son In good health Daughter In good health Other Substance use disorder Social History Housing: House Are you a primary care navigator to a significant other at home: No Do you presently have visiting nurse or other home services: No Alcohol intake: never Patient Tobacco Use Status: Never used Tobacco e-Cigarette/Vaping Use: Never Used Second Hand Smoke Exposure: No service: No Current occupational status: employed 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 - Neurological: Denies numbness or tingling. - Musculoskeletal: Reports chronic sharp, shooting neck pain radiating to both shoulders and occasionally the elbow. - Musculoskeletal: Reports shoulder pain when reaching from an overhead position. - Musculoskeletal: Reports bilateral hip pain. - Musculoskeletal: Denies muscle spasms around the shoulders and neck. - Gastrointestinal: Reports nausea associated with severe pain. Const All systems reviewed & are unremarkable except as noted in HPI and below Physical Exam Vital Signs: Last Vital Signs Pulse 86 08/14/25 14:07 BP 131/78 08/14/25 14:07 Pulse Ox 98 08/14/25 14:07 Oxygen Delivery Method Room Air 08/14/25 14:07 BMI result Body Mass Index 28.3 General: Appears afebrile. Alert and oriented. Mood and affect appropriate. Follows and participates in conversation appropriately. Respiratory effort is unlabored. No cough. Able to transition from sit to stand unassisted. Ambulates with bilaterally normal heel strike and toe off. Neck Other: Patient with decreased cervical ROM in all planes/especially with right lateral rotation. Reports increased pain with cervical extension and flexion, worse with flexion and bending. Spurling compression test equivocal. Elvey's tension test positive on the right, with radiation of pain from neck to wrist and right 2nd and 3rd digits, partially into right thumb. Lhermitte's test was negative. DTR intact, +2 and symmetrical. Patient demonstrated 5/5 motor strength of bilateral upper extremities. 2 + radial pulses. Significant tightness throughout right upper trapezius as well as TTP throughout bilateral upper trapezius muscles. No paravertebral tenderness over facet joints bilaterally. Multiple taut bands palpated throughout bilateral upper trapezius muscles. Neck: Yes normal visual inspection, Yes no lymphadenopathy, Yes supple, No anterior neck swelling, Yes no JVD, No prominent supraclavicular fat pad and Yes prominent dorsocervical fat pad General: Yes no CVA tenderness Back/Spine/Pelvis Back: no CVA tenderness Cervical Spine: cervical ROM normal, No collar present, loss of normal cervical lordosis, cervical muscular tenderness (R>L), pain with cervical ROM, No Cervical spine scars present, No Cervical spine tenderness and No step off deformity Thoracic/Lumbar Spine: thoracic and lumbar spine normal to inspection, No Thoracic/lumbar spine scar(s), thoraco-lumbar ROM limited, No thoracic spinal tenderness and No lumbar spinal tenderness Extrem General: Yes capillary refill normal, Yes no clubbing, cyanosis or edema and Yes no calf tenderness Results Reviewed Results Reviewed: XR CERVICAL SPINE 07/17/25 CLINICAL INFORMATION: M54.12 - Radiculopathy, cervical region COMPARISON: None available. TECHNIQUE: AP oblique lateral and atlantoodontoid views. FINDINGS: Metallic braces overlapping the atlantoodontoid view. Craniocervical junction is intact. Mild endplate irregularity at C5-6 and C6-7. No acute cortical disruption or malalignment. No lytic or blastic lesions. Right neuroforamina narrowing at C5-6 likely secondary to posterior marginal osteophyte formation. IMPRESSION: Spondylosis C5-6 and C6-7 with likely right neuroforamina narrowing at C5-6. Assessment & Plan Assessment & Plan (1) Radiculopathy of cervical spine: Code(s): M54.12 - Radiculopathy, cervical region Category: Medical (2) Cervicalgia: Code(s): M54.2 - Cervicalgia Category: Medical (3) Cervical spondylosis: Code(s): M47.812 - Spondylosis without myelopathy or radiculopathy, cervical region Category: Medical (4) Cervicogenic headache: Code(s): G44.86 - Cervicogenic headache Category: Medical (5) Bilateral shoulder pain: Code(s): M25.511 - Pain in right shoulder; M25.512 - Pain in left shoulder Category: Medical Plan An MRI of the cervical spine will be ordered to further evaluate the patient's radicular symptoms and foraminal narrowing identified on X-ray consistent with physical exam. Additionally, a shoulder X-ray will be ordered to assess for any underlying shoulder pathology contributing to her pain. A referral will be placed for physical therapy to address the chronic neck pain and improve posture. The use of a cervical support pillow or neck foam roller was recommended to maintain proper neck curvature during sleep and for comfort. The potential benefit of a non-drowsy muscle relaxant, such as baclofen or methocarbamol, was discussed as an alternative to cyclobenzaprine, tried in the past. Interventional pain management options were discussed. If the MRI confirms significant nerve impingement, a cervical interlaminar epidural steroid injection will be considered. For arthritic pain, future options such as radiofrequency ablation or peripheral nerve stimulation were introduced, with the explanation that eligibility depends on the results of diagnostic nerve blocks. Informational pamphlets were provided to patient. All questions and concerns have been answered and patient agreed with the treatment plan. Follow up for MRI results and sooner as needed. Patient was informed and verbally consented to the use of an ambient scribe for clinic note documentation during this visit. Orders: Orders XR Shoulder Jamie min 2V Today M25.511 - Pain in right shoulder, M25.512 - Pain in left shoulder PT Evaluation and Treatment Today G44.86 - Cervicogenic headache, M47.812 - Spondylosis without myelopathy or radiculopathy, cervical region, M54.12 - Radiculopathy, cervical region, M54.2 - Cervicalgia MR cervical spine wo con Today G44.86 - Cervicogenic headache, M47.812 - Spondylosis without myelopathy or radiculopathy, cervical region, M54.12 - Radiculopathy, cervical region, M54.2 - Cervicalgia Coding Level of Care Code New Pt Level 4 (91383) Diagnoses Radiculopathy of cervical spine M54.12 Cervicalgia M54.2 Cervical spondylosis M47.812 Cervicogenic headache G44.86 Bilateral shoulder pain M25.511; M25.512
[2025-08-14 14:07] VITALS: BP 131/78; PULSE 86; O2SAT 98; BMI 28.3
== END 2025-08-14 14:50 | disposition home or self-care (01) ==
LOC: HO.PMC 14:03
PROVIDERS: Visit Provider Nurse Practitioner Family
DX: M54.12 Radiculopathy, cervical region (principal); M54.2 Cervicalgia; M47.812 Spondylosis without myelopathy or radiculopathy, cervical region; G44.86 Cervicogenic headache; M25.511 Pain in right shoulder; M25.512 Pain in left shoulder
CPT/HCPCS: 99204